=== PATIENT | male | born 1945 | race African-American/Black ===

== ENCOUNTER 2017-04-23 17:49 | Inpatient (IN) | payer MEDICARE ==
[2017-04-23] VITALS (8 sets, daily range): BP systolic 92–116; BP diastolic 48–90
[~2017-04-23] VITALS: Ht 182.9 cm; Wt 90.8 kg
[2017-04-23] MEDS ORDERED: Midazolam 2mg/2ml Inj IVP ONE ×2 (18:00→20:30)
[2017-04-23] MEDS ORDERED: Piperacillin/Tazobactam 4.5 GM in NS 110 ML IV ONE (18:00)
[2017-04-23] MEDS ORDERED: Etomidate 40mg/20ml Inj IV ONE (18:00)
[2017-04-23] MEDS ORDERED: Vancomycin 1.5gm/D5W 300ml 325 ML IVPB ONE (18:00)
[2017-04-23] MEDS ORDERED: Solu-MEDROL 125mg Inj IVP ONE (18:00)
[2017-04-23 18:18] LABS: MEAN CORPUSCULAR HEMOGLOBIN 31.8 PG (27.0-31.0); MEAN CORPUSCULAR HGB CONC 31.2 G/DL (32.0-36.0); MEAN CORPUSCULAR VOLUME 102 FL (80-99); MEAN PLATELET VOLUME 6.4 FL (6.5-10.1); PLATELET COUNT 389 K/UL (150-450); RED BLOOD COUNT 2.47 M/UL (4.70-6.10); RED CELL DISTRIBUTION WIDTH 15.5 % (11.6-14.8); WHITE BLOOD COUNT 10.7 K/UL (4.8-10.8)
--- NOTE | 2017-04-23 18:18 | Emergency Room Report ---
History of Present Illness General Chief Complaint: Dyspnea/Respdistress Source: Family Member, EMS Present Illness HPI Patient presents from SNF with resp distress, hypoxia and decreased mentation. Post stroke. H/O pneumonia in past. Unable to answer questions. Accucheck high in field. No other history available initially. Son later states cough for several days. Allergies: Coded Allergies: No Known Allergies (Unverified , 04/23/17) Patient History Past Medical History: see triage record Past Surgical History: other - PEG Social History Narrative SNF, full code Reviewed Nursing Documentation: PMH: Agreed, PSxH: Agreed Review of Systems All Other Systems: limited Physical Exam Vital Signs Date Time Temp Pulse Resp B/P Pulse Ox O2 Delivery O2 Flow Rate FiO2 04/23/17 17:47 98.2 83 20 113/66 99 Non-Rebreather 15.0 Sp02 EP Interpretation: reviewed, normal General Appearance: moderate distress, obese, Chronically Ill Head: normocephalic Eyes: bilateral eye PERRL, bilateral eye normal inspection ENT: dry mucus membranes Neck: supple Respiratory: crackles, rales, rhonchi, other - hypopneic Cardiovascular #1: regular rate, rhythm, edema Cardiovascular #2: 2+ radial (R) Gastrointestinal: normal inspection, normal bowel sounds, non tender, no mass, non-distended Musculoskeletal: back normal, swelling Neurologic: DTRs symmetric, motor weakness - R hemiparesis, other - ebulic, not respond to questions or commands Skin: cyanosis, other - fevrile, decubiti Procedures Critical Care Time Critical Care Time Total Critical Care Time: 45 min of bedside evaluation and treatment excludes procedures Procedures: intubation, EKG Reason for Critical Care: Hypotension, sepsis, metabolic acidosis, prevention of end organ injury, respiratory failure Course: the patient presented with AMS, hypoxia. I assessed ineffective TV. He was immediately intubated. He later dropped his blood pressure but this responded to aggressive fluid resuscitation. In addition, antibiotics were initiated. Repeated evaluations were made as well as discussion with PMD/ critical care. He was more alert and sedation with Versed was ordered. This had to be repeated ABG reflected vent support and improvement of respiratory acidosis. Patient admitted to ICU. Consultations: PMD/critical care , post care - Carlos RICHARDSON Alternative history: EMS, family Result: Patient was improved but critical Performed by: Dr. Avn Intubation Intubation : Consent: Emergent Intubation Method: orotracheal Tube Size (cm): 8.0 Medications: Etomidate Breath Sounds after Intubation: equal - 24 cm Intubation Complications: no complications Post Intubation Xray: Yes Attempts: One Patient Tolerated: Well Complications: None Medical Decision Making Diagnostic Impression: Primary Impression: Respiratory failure Qualified Codes: J96.01 - Acute respiratory failure with hypoxia; J96.02 - Acute respiratory failure with hypercapnia Additional Impressions: Pneumonia Qualified Codes: J18.9 - Pneumonia, unspecified organism Sepsis Qualified Codes: A41.9 - Sepsis, unspecified organism Status post stroke ER Course Patient presents with respiratory distress, ALOC and hypoxia. Initial evaluation with poor tidal volumes. Suspect pneumonia/sepsis but need to exclude cardiac cause. Some neurologic compromise as prior stroke. After evaluation of POLST, set up for immediate intubation. Bloods, EKG, CXR ordered. Initiation of bolus to treat sepsis. Triple antibiotics ordered as from SNF. Sedation ordered. CXR with R infiltrates. Thick green secretions in ET tube. During bolus BP dropped to 80. BP improved with bolus. Repeat sedation needed. ABG was drawn on 100 % (not 35%). Sats 97% on 35%. Increased versed as patient coughing and light. Repeat sedation needed. Improved sedation. Discussed with son. Type and Rh ordered due to anemia. Repeat accucheck ordered. Elevated lactic acid and renal function. Admit ICU Dr. Mason. After admission, Carlos called. Discussed with RITO RICHARDSON ([id number]). Laboratory Tests Test 04/23/17 17:54 04/23/17 18:48 04/23/17 20:20 White Blood Count 10.7 K/UL (4.8-10.8) Red Blood Count 2.47 M/UL (4.70-6.10) L Hemoglobin 7.8 G/DL (14.2-18.0) L Hematocrit 25.1 % (42.0-52.0) L Mean Corpuscular Volume 102 FL (80-99) H Mean Corpuscular Hemoglobin 31.8 PG (27.0-31.0) H Mean Corpuscular Hemoglobin Concent 31.2 G/DL (32.0-36.0) L Red Cell Distribution Width 15.5 % (11.6-14.8) H Platelet Count 389 K/UL (150-450) Mean Platelet Volume 6.4 FL (6.5-10.1) L Neutrophils (%) (Auto) % (45.0-75.0) Lymphocytes (%) (Auto) % (20.0-45.0) Monocytes (%) (Auto) % (1.0-10.0) Eosinophils (%) (Auto) % (0.0-3.0) Basophils (%) (Auto) % (0.0-2.0) Differential Total Cells Counted 100 Neutrophils % (Manual) 63 % (45-75) Lymphocytes % (Manual) 20 % (20-45) Monocytes % (Manual) 10 % (1-10) Eosinophils % (Manual) 2 % (0-3) Basophils % (Manual) 0 % (0-2) Band Neutrophils 5 % (0-8) Platelet Estimate Adequate Platelet Morphology Normal Polychromasia 1+ Hypochromasia 3+ Anisocytosis 1+ Macrocytosis 1+ Prothrombin Time 10.8 SEC (9.30-11.50) Prothrombin Time INR 1.0 (0.9-1.1) PTT 29 SEC (23-33) Sodium Level 139 mEQ/L (135-145) Potassium Level 5.4 mEQ/L (3.4-4.9) H Chloride Level 100 mEQ/L (98-107) Carbon Dioxide Level 27 mEQ/L (20-30) Anion Gap 12 (5-15) Blood Urea Nitrogen 42 mg/dL (7-23) H Creatinine 1.3 mg/dL (0.7-1.2) H Estimate Glomerular Filtration Rate mL/min (>60) Glucose Level 301 mg/dL (74-106) H Lactic Acid Level 2.60 mmol/L (0.66-2.22) H 1.80 mmol/L (0.66-2.22) Calcium Level 9.1 mg/dL (8.6-10.2) Total Bilirubin 0.2 mg/dL (0.0-1.2) Aspartate Amino Transferase (AST) 30 U/L (5-40) Alanine Aminotransferase (ALT) 36 U/L (3-41) Alkaline Phosphatase 126 U/L (40-129) Troponin I < 0.30 ng/mL (<=0.30) Pro-B-Type Natriuretic Peptide 1604 pg/mL (0-125) H Total Protein 7.0 g/dL (6.6-8.7) Albumin 2.8 g/dL (3.5-5.2) L Globulin 4.2 g/dL Albumin/Globulin Ratio 0.6 (1.0-2.7) L Arterial Blood pH 7.400 (7.350-7.450) Arterial Blood Partial Pressure CO2 42.9 mmHg (35.0-45.0) Arterial Blood Partial Pressure O2 332.2 mmHg (75.0-100.0) H Arterial Blood HCO3 26.3 mmol/L (22.0-26.0) H Arterial Blood Oxygen Saturation 99.3 % (92.0-98.0) H Arterial Blood Base Excess 1.4 Angelo Test Positive EKG Diagnostic Results Rate: normal Rhythm: NSR ST Segments: no acute changes Rhythm Strip Diag. Results EP Interpretation: yes Rhythm: NSR, no PVC's, no ectopy Chest X-Ray Diagnostic Results Chest X-Ray Ordered: Yes # of Views/Limited/Complete: 1 View EP Interpretation: Yes Interpretation: no effusion, no pneumothorax, other - ET OK, R infiltrates Indication: Shortness of Breath Impression: Other Interpreting ER Provider: van Last Vital Signs Date Time Temp Pulse Resp B/P Pulse Ox O2 Delivery O2 Flow Rate FiO2 04/24/17 04:00 35 04/24/17 03:25 68 21 04/24/17 02:30 100/44 100 Mechanical Ventilator 04/24/17 00:00 99.1 04/23/17 19:29 15.0 Status: improved Disposition: ADMITTED INPATIENT Condition: Critical Marco Araujo M.D. Apr 23, 2017 18:18
[2017-04-23 18:39] LABS: PROTHROMBIN TIME 10.8 SEC (9.30-11.50)
[2017-04-23 18:46] LABS: ALANINE AMINOTRANSFERASE 36 U/L (3-41); ALBUMIN/GLOBULIN RATIO 0.6 (1.0-2.7); ANION GAP 12 (5-15); ASPARTATE AMINO TRANSFERASE 30 U/L (5-40); CALCIUM 9.1 mg/dL (8.6-10.2); CARBON DIOXIDE 27 mEQ/L (20-30); CHLORIDE 100 mEQ/L (98-107); CREATININE 1.3 mg/dL (0.7-1.2); HEMOLYSIS 1; POTASSIUM 5.4 mEQ/L (3.4-4.9); SODIUM 139 mEQ/L (135-145); TROPONIN I < 0.30 ng/mL (<=0.30)
[2017-04-23 18:47] LABS: BAND NEUTROPHILS % (MANUAL) 5 % (0-8); BASOPHILS % (MANUAL) 0 % (0-2); EOSINOPHILS % (MANUAL) 2 % (0-3); LYMPHOCYTES % (MANUAL) 20 % (20-45); NEUTROPHILS % (MANUAL) 63 % (45-75); PLATELET ESTIMATE ADEQUATE; TOTAL CELLS COUNTED 100
[2017-04-23 18:48] LABS: ANISOCYTOSIS 1+; HYPOCHROMASIA 3+; MACROCYTES 1+; PLATELET MORPHOLOGY NORMAL; POLYCHROMASIA 1+
[2017-04-23 18:50] LABS: REFLEX LACTIC ACID YES OR NO YES
[2017-04-23] MEDS: Midazolam for drip 50 MG in D5W 90 ML IV SCH ×3 (18:51→22:06)
[2017-04-23] MEDS ORDERED: Zosyn 4.5gm inj ONE (18:54)
[2017-04-23] MEDS ORDERED: CATAPRES0.1 MG PEG (19:00)
[2017-04-23] MEDS ORDERED: NORVASC10 MG GT (19:00)
[2017-04-23] MEDS ORDERED: LOVENOX10 M4 SUBQ (19:00)
[2017-04-23] MEDS ORDERED: PEPCID20 MG ORAL (19:00)
[2017-04-23] MEDS ORDERED: ATORVASTATIN CA80 MG GT (19:00)
[2017-04-23] MEDS ORDERED: ECOTRIN325 MG ORAL (19:00)
[2017-04-23] MEDS ORDERED: HYDRALAZINE HCL50 MG ORAL (19:00)
[2017-04-23] MEDS ORDERED: FOLIC ACID1 MG PEG (19:00)
[2017-04-23] MEDS ORDERED: ISOSORBIDE DINIT5 MG PEG (19:02)
[2017-04-23] MEDS ORDERED: LOSARTAN POTASS50 MG PEG (19:02)
[2017-04-23] MEDS ORDERED: SENOKOT8.6 MG PO (19:02)
[2017-04-23] MEDS ORDERED: Miralax 17gm pkt ORAL PRN (19:15)
[2017-04-23] MEDS ORDERED: DuoNeb 0.5-3(2.5)mg/3ml neb HHN PRN (19:15)
[2017-04-23] MEDS ORDERED: Amikacin Rx to dose MISC PRN (20:00)
[2017-04-23 20:12] LABS: ABG ALLEN TEST POSITIVE; ABG BASE EXCESS 1.4; ABG PCO2 42.9 mmHg (35.0-45.0)
[2017-04-23] MEDS: Heparin 5000 units/ml inj SUBQ SCH (21:38)
[2017-04-23] MEDS: Ertapenem 1 GM in NS 55 ML IV SCH (21:39)
[2017-04-23] MEDS: Amikacin 1,200 MG in NS 110 ML IV SCH (22:53)
--- NOTE | 2017-04-23 23:12 | History and Physical ---
History of Present Illness General Date patient seen: Apr 23, 2017 Reason for Hospitalization: Dyspnea/Respdistress Present Illness HPI 71 year old male with hx of DM, prostate CA, CVA, half-way resident presented with resp distress, hypoxia and decreased mentation. Post stroke. H/ O pneumonia in past. Unable to answer questions. Accucheck high in field. There is an unsigned POLST in the chart indicating "Attempt Resuscitation", therefore pt was intubated and transferred to ICU. Allergies: Coded Allergies: No Known Allergies (Unverified , 04/23/17) Medication History Scheduled Amlodipine Besylate (Norvasc), 10 MG GT DAILY, (Reported) Aspirin* (Ecotrin*), 81 MG ORAL DAILY, (Reported) Atorvastatin Calcium* (Lipitor*), 80 MG GT BEDTIME, (Reported) Clonidine Hcl* (Catapres*), 0.1 MG PEG DAILY, (Reported) Enoxaparin* (Lovenox*), 40 MG SUBQ DAILY, (Reported) Famotidine (Pepcid), 20 MG ORAL BEDTIME, (Reported) Folic Acid* (Folic Acid*), 400 MCG PEG DAILY, (Reported) Hydralazine Hcl* (Hydralazine Hcl*), 50 MG ORAL EVERY 8 HOURS, (Reported) Isosorbide Dinitrate (Isosorbide Dinitrate*), 10 MG PEG TID, (Reported) Losartan Potassium* (Losartan Potassium*), 50 MG PEG BID, (Reported) Sennosides (Senokot), 8.6 MG PO DAILY, (Reported) Patient History Healthcare decision maker colette suresh, daughter Resuscitation status Full Code Advanced Directive on File No Past Medical/Surgical History Past Medical/Surgical History: (1) Diabetes mellitus (2) Prostate cancer (3) Status post stroke Review of Systems All Other Systems: negative except mentioned in HPI Physical Exam General Appearance: cachetic Lines, tubes and drains: peripheral HEENT: normocephalic, atraumatic Neck: non-tender, supple Respiratory/Chest: chest wall non-tender, lungs clear Cardiovascular/Chest: normal peripheral pulses, normal rate, regular rhythm Abdomen: normal bowel sounds Genitourinary/Rectal: normal genital exam Extremities: normal range of motion Last 24 Hour Vital Signs Date Time Temp Pulse Resp B/P Pulse Ox O2 Delivery O2 Flow Rate FiO2 04/23/17 22:53 99.9 04/23/17 21:35 16 04/23/17 21:25 80 16 35 04/23/17 21:09 80 04/23/17 21:09 92/51 04/23/17 21:03 100.3 80 16 116/90 96 Mechanical Ventilator 35 04/23/17 21:00 35 04/23/17 19:29 98.9 67 22 107/48 100 Non-Rebreather 15.0 35 04/23/17 19:27 80 18 Non-Rebreather 15.0 35 04/23/17 19:26 81 20 Mechanical Ventilator 35 04/23/17 18:51 18 04/23/17 18:35 80 16 35 04/23/17 17:47 98.2 83 20 113/66 99 Non-Rebreather 15.0 Laboratory Tests Test 04/23/17 17:54 04/23/17 18:48 04/23/17 20:20 White Blood Count 10.7 K/UL (4.8-10.8) Red Blood Count 2.47 M/UL (4.70-6.10) L Hemoglobin 7.8 G/DL (14.2-18.0) L Hematocrit 25.1 % (42.0-52.0) L Mean Corpuscular Volume 102 FL (80-99) H Mean Corpuscular Hemoglobin 31.8 PG (27.0-31.0) H Mean Corpuscular Hemoglobin Concent 31.2 G/DL (32.0-36.0) L Red Cell Distribution Width 15.5 % (11.6-14.8) H Platelet Count 389 K/UL (150-450) Mean Platelet Volume 6.4 FL (6.5-10.1) L Neutrophils (%) (Auto) % (45.0-75.0) Lymphocytes (%) (Auto) % (20.0-45.0) Monocytes (%) (Auto) % (1.0-10.0) Eosinophils (%) (Auto) % (0.0-3.0) Basophils (%) (Auto) % (0.0-2.0) Differential Total Cells Counted 100 Neutrophils % (Manual) 63 % (45-75) Lymphocytes % (Manual) 20 % (20-45) Monocytes % (Manual) 10 % (1-10) Eosinophils % (Manual) 2 % (0-3) Basophils % (Manual) 0 % (0-2) Band Neutrophils 5 % (0-8) Platelet Estimate Adequate Platelet Morphology Normal Polychromasia 1+ Hypochromasia 3+ Anisocytosis 1+ Macrocytosis 1+ Prothrombin Time 10.8 SEC (9.30-11.50) Prothromb Time International Ratio 1.0 (0.9-1.1) Activated Partial Thromboplast Time 29 SEC (23-33) Sodium Level 139 mEQ/L (135-145) Potassium Level 5.4 mEQ/L (3.4-4.9) H Chloride Level 100 mEQ/L (98-107) Carbon Dioxide Level 27 mEQ/L (20-30) Anion Gap 12 (5-15) Blood Urea Nitrogen 42 mg/dL (7-23) H Creatinine 1.3 mg/dL (0.7-1.2) H Estimat Glomerular Filtration Rate mL/min (>60) Glucose Level 301 mg/dL (74-106) H Lactic Acid Level 2.60 mmol/L (0.66-2.22) H 1.80 mmol/L (0.66-2.22) Calcium Level 9.1 mg/dL (8.6-10.2) Total Bilirubin 0.2 mg/dL (0.0-1.2) Aspartate Amino Transf (AST/SGOT) 30 U/L (5-40) Alanine Aminotransferase (ALT/SGPT) 36 U/L (3-41) Alkaline Phosphatase 126 U/L (40-129) Troponin I < 0.30 ng/mL (<=0.30) Pro-B-Type Natriuretic Peptide 1604 pg/mL (0-125) H Total Protein 7.0 g/dL (6.6-8.7) Albumin 2.8 g/dL (3.5-5.2) L Globulin 4.2 g/dL Albumin/Globulin Ratio 0.6 (1.0-2.7) L Arterial Blood pH 7.400 (7.350-7.450) Arterial Blood Partial Pressure CO2 42.9 mmHg (35.0-45.0) Arterial Blood Partial Pressure O2 332.2 mmHg (75.0-100.0) H Arterial Blood HCO3 26.3 mmol/L (22.0-26.0) H Arterial Blood Oxygen Saturation 99.3 % (92.0-98.0) H Arterial Blood Base Excess 1.4 Angelo Test Positive Height (Feet): 6 Height (Inches): 1.00 Weight (Pounds): 195 Medications Current Medications Medications (Trade) Dose Ordered Sig/Guzman Route PRN Reason Start Time Stop Time Status Last Admin Dose Admin Acetaminophen (Tylenol) 650 mg Q4H PRN ORAL fever 04/23/17 19:15 05/23/17 19:14 04/23/17 21:39 Albuterol/ Ipratropium 3 ml 3 ml Q4H PRN HHN Shortness of Breath 04/23/17 19:15 04/28/17 19:14 Amikacin Protocol (Amikacin pharmacy to dose) 1 ea DAILY PRN MISC PRN RX PROTOCOL 04/23/17 20:00 05/23/17 19:59 Amikacin Sulfate 1200 mg/Sodium Chloride 114.8 ml @ 114.8 mls/ hr Q24H IV 04/23/17 22:00 04/30/17 21:59 04/23/17 22:53 Ertapenem 1 gm/ Sodium Chloride 55 ml @ 110 mls/hr Q24H IV 04/23/17 20:30 04/24/17 20:29 04/23/17 21:39 Heparin Sodium (Porcine) (Heparin 5000 units/ml) 5,000 units EVERY 12 HOURS SUBQ 04/23/17 21:00 05/23/17 20:59 04/23/17 21:38 Lorazepam 2 mg 2 mg Q2H PRN IV For Anxiety 04/23/17 19:15 04/30/17 19:14 Midazolam HCl 50 mg/Dextrose 100 ml @ 0 mls/hr Q24H IV 04/23/17 18:00 05/23/17 17:59 04/23/17 21:35 Morphine Sulfate (Morphine Sulfate) 4 mg Q4H PRN IVP Severe Pain (Pain Scale 7-10) 04/23/17 19:15 04/30/17 19:14 Norepinephrine Bitartrate/ Dextrose (Levophed/D5W) 254 ml @ 0 mls/hr Q24H IV 04/23/17 20:00 05/23/17 19:59 Ondansetron HCl (Zofran) 4 mg Q6H PRN IVP Nausea & Vomiting 04/23/17 19:15 05/23/17 19:14 Pantoprazole (Protonix) 40 mg DAILY IV 04/24/17 09:00 05/24/17 08:59 Polyethylene Glycol (Miralax) 17 gm DAILYPRN PRN ORAL Constipation 04/23/17 19:15 05/23/17 19:14 Sodium Chloride (Sodium Chloride 1000ml bag) 1,000 ml @ 100 mls/hr Q10H IVLG 04/23/17 20:15 05/23/17 20:14 04/23/17 21:08 Vancomycin HCl (Vanco rx to dose) 1 ea DAILY PRN MISC PRN RX PROTOCOL 04/23/17 20:00 05/23/17 19:59 Vancomycin HCl/ Dextrose (Vancomycin/D5W) 275 ml @ 183.3 mls/ hr Q12H IVPB 04/23/17 23:00 04/28/17 22:59 Assessment/Plan Problem List: (1) Acute respiratory failure ICD Codes: J96.00 - Acute respiratory failure, unspecified whether with hypoxia or hypercapnia SNOMED: 24420555 (2) Sepsis ICD Codes: A41.9 - Sepsis, unspecified organism SNOMED: 14992920 Qualifiers: Qualified Codes: A41.9 - Sepsis, unspecified organism (3) Pneumonia ICD Codes: J18.9 - Pneumonia, unspecified organism SNOMED: 875409233 Qualifiers: Qualified Codes: J18.9 - Pneumonia, unspecified organism (4) Diabetes mellitus ICD Codes: E11.9 - Type 2 diabetes mellitus without complications SNOMED: 01020306 (5) Prostate cancer ICD Codes: C61 - Malignant neoplasm of prostate SNOMED: 400740987 Respiratory: adjust tidal volume, monitor respiratory rate, adjust FIO2, CXR Cardiac: continue to monitor HR/BP Renal: F/U I&O, keep IV fluid, check electrolytes Infectious Disease: check cultures, continue antibiotics Gastrointestinal: continue feedings/current rate Endocrine: monitor blood sugar, check TSH Hematologic: monitor H/H, transfuse if hgb<8.5 Neurologic: PRN Ativan, PRN Morphine Affect: PRN ativan Prophylaxis: Protonix, Heparin Disposition: keep in ICU Notes Reviewed: whiskey filterer, cardio Discussed with: nurses, consultants, case hardener MARGARITA ROBLES Apr 23, 2017 23:12
[2017-04-23] MEDS: Vancomycin 1.25 GM in D5W 275 ML IVPB SCH (23:22)
[2017-04-24] VITALS (31 sets, daily range): BP systolic 100–146; BP diastolic 44–75
--- NOTE | 2017-04-24 02:20 | Wound Care Consultation ---
Wound Assessment Wound Assessment #1: Wound Number: #1 Wound Present on Admission: Yes New Wound: No Status Change of Wound: No Wound Location Body Site Modif: mid Wound Location Body Site: sacral Wound Type: scar - scattered Joyce Test: Does not Joyce Wound Thickness: Full Thickness Wound Length: 9.0 Wound Width: 4.0 Wound Depth: utd Wound Drainage Amount: None Wound Drainage Odor: None/Absent Tissue Surrounding Wound: Intact Wound General Appearance: Asymptomatic Wound Assessment #2: Wound Number: #2 Wound Present on Admission: Yes New Wound: No Status Change of Wound: No Wound Location Body Site Modif: right Wound Location Body Site: heel Wound Type: pressure ulcer Joyce Test: Does not Joyce Pressure Ulcer Stage: deep tissue injury Wound Thickness: Full Thickness Wound Length: 3.0 Wound Width: 2.0 Wound Depth: utd Percent of Wound Purple/Maroon: 100 Wound Drainage Amount: None Wound Drainage Odor: None/Absent Tissue Surrounding Wound: Intact Wound General Appearance: Reddened - maroon. Wound Assessment #3: Wound Number: #3 Wound Present on Admission: Yes New Wound: No Status Change of Wound: No Wound Location Body Site Modif: left Wound Location Body Site: buttocks Wound Type: pressure ulcer Joyce Test: Does not Joyce Pressure Ulcer Stage: III - scattered noted fullthickness scar tissue to area. Wound Thickness: Full Thickness Wound Length: 5.0 Wound Width: 3.0 Wound Depth: 0.2 Percent of Wound [place]/Red: 100 Wound Drainage Description: Serosanguineous Wound Drainage Amount: Scant Wound Drainage Odor: None/Absent Tissue Surrounding Wound: Macerated Wound General Appearance: Reddened Wound Assessment #4: Wound Number: #4 Wound Present on Admission: Yes New Wound: No Status Change of Wound: No Wound Location Body Site: other - scrotal area Wound Type: other - open fullthickness scattered wounds Joyce Test: Does not Joyce Wound Thickness: Full Thickness Percent of Wound [place]/Red: 100 Wound Drainage Description: Serosanguineous Wound Drainage Amount: Scant Wound Drainage Odor: None/Absent Tissue Surrounding Wound: Macerated Wound General Appearance: Reddened Wound Comment #1 right heel deep tissue injury. #2 sacral full thickness scar tissue scattered. #3 parietal scalp noted hyperpigmentaion skin intact. #4 left lower buttocks pressure ulcer stage III scattered full thickness scar tissue to area #5 scrotal area full thickness scattered open wounds. Recommendation. - local wound care as ordered. -low air loss SPR mattress. - Turn and reposition. - keep clean and dry. -Optimize nutritIon. -Avoid shear and friction. -Assess and notify MD for any further change of condition to skin noted. JORDIN PENA Apr 24, 2017 02:20
[2017-04-24 06:33] LABS: MEAN CORPUSCULAR HEMOGLOBIN 31.5 PG (27.0-31.0); MEAN CORPUSCULAR HGB CONC 30.5 G/DL (32.0-36.0); MEAN CORPUSCULAR VOLUME 103 FL (80-99); MEAN PLATELET VOLUME 6.2 FL (6.5-10.1); PLATELET COUNT 353 K/UL (150-450); RED BLOOD COUNT 2.26 M/UL (4.70-6.10); RED CELL DISTRIBUTION WIDTH 15.7 % (11.6-14.8); WHITE BLOOD COUNT 14.1 K/UL (4.8-10.8)
[2017-04-24 06:56] LABS: INR 1.1 (0.9-1.1); PROTHROMBIN TIME 11.1 SEC (9.30-11.50)
[2017-04-24 07:15] LABS: ALANINE AMINOTRANSFERASE 30 U/L (3-41); ALBUMIN/GLOBULIN RATIO 0.5 (1.0-2.7); ANION GAP 11 (5-15); ASPARTATE AMINO TRANSFERASE 26 U/L (5-40); BILIRUBIN,DIRECT 0.1 mg/dL (0.1-0.3); CALCIUM 8.9 mg/dL (8.6-10.2); CARBON DIOXIDE 25 mEQ/L (20-30); CHLORIDE 102 mEQ/L (98-107); CREATININE 1.3 mg/dL (0.7-1.2); LACTATE DEHYDROGENASE 239 U/L (135-230); POTASSIUM 5.5 mEQ/L (3.4-4.9); SODIUM 138 mEQ/L (135-145); TOTAL PROTEIN 6.9 g/dL (6.6-8.7)
[2017-04-24 07:52] LABS: HEMOLYSIS 2; IRON 16 ug/dL (59-158); TOTAL IRON BINDING CAPACITY 139 ug/dL (250-400)
--- NOTE | 2017-04-24 08:15 | Diagnostic Imaging Report ---
Indications: Shortness of breath Technique: Portable AP chest Findings: Comparison: 04/23/17 Pulmonary inflation has improved. Bilateral parahilar interstitial infiltrates have decreased. Focal opacities persist in the right parahilar and infrahilar regions. Left lung currently clear. Heart size, pulmonary vasculature remain within normal limits. No pleural abnormalities detected IMPRESSION: Decrease in parahilar interstitial opacities with improved pulmonary inflation Persistent focal opacities in right perihilar/infrahilar regions, nonspecific, may represent atelectasis or focal pneumonia
[2017-04-24 08:23] LABS: APPEARANCE,URINE SLIGHTLY CLOUDY; KETONES,URINE NEGATIVE (NEGATIVE); LEUKOCYTE ESTERASE ,URINE NEGATIVE (NEGATIVE); NITRITE,URINE NEGATIVE (NEGATIVE); PH,URINE 5 (4.5-8.0); PROTEIN,URINE 3+ (NEGATIVE); UROBILINOGEN,URINE NORMAL MG/DL (0.0-1.0)
[2017-04-24] MEDS: Heparin 5000 units/ml inj SUBQ SCH ×2 (08:27→21:32)
[2017-04-24 08:37] LABS: BACTERIA,URINE FEW /HPF; RBC,URINE TNTC /HPF (0 - 0); SQUAMOUS EPITHELIAL CELL,UR OCCASIONAL /LPF (NONE/OCC)
[2017-04-24] MEDS: Pantoprazole Inj IV SCH (08:44)
[2017-04-24 09:39] LABS: ABG BASE EXCESS 2.6; ABG PCO2 41.3 mmHg (35.0-45.0)
[2017-04-24 09:40] LABS: ABG ALLEN TEST POSITIVE
[2017-04-24 09:42] LABS: ERYTHROCYTE SEDIMENTATION RATE 135 MM/HR (0-20); PATH BLOOD SMEAR/OMC SENT TO PATHOLOGIST
[2017-04-24] MEDS: Midazolam for drip 50 MG in D5W 90 ML IV SCH (10:17)
--- NOTE | 2017-04-24 10:24 | Consultation ---
Consult Note Consult Note Asked to eval for renal failure and high K Chief Complaint: Dyspnea/Respdistress Patient presents from SNF with resp distress, hypoxia and decreased mentation. Post stroke. H/O pneumonia in past. Unable to answer questions. Accucheck high in field. No other history available initially. Son later states cough for several days. Past Surgical History: other - PEG SNF, full code All Other Systems: limited ER Physical Exam - General Physical Exam Vital Signs Date Time Temp Pulse Resp B/P Pulse Ox O2 Delivery O2 Flow Rate FiO2 04/23/17 17:47 98.2 83 20 113/66 99 Non-Rebreather 15.0 Sp02 EP Interpretation: reviewed, normal General Appearance: moderate distress, obese, Chronically Ill Head: normocephalic Eyes: bilateral eye PERRL, bilateral eye normal inspection ENT: dry mucus membranes Neck: supple Respiratory: crackles, rales, rhonchi, other - hypopneic Cardiovascular #1: regular rate, rhythm, edema Cardiovascular #2: 2+ radial (R) Gastrointestinal: normal inspection, normal bowel sounds, non tender, no mass, non-distended Musculoskeletal: back normal, swelling Neurologic: DTRs symmetric, motor weakness - R hemiparesis, other - ebulic, not respond to questions or commands Skin: cyanosis, other - fevrile, decubiti Intubation : Consent: Emergent Intubation Method: orotracheal Tube Size (cm): 8.0 Medications: Etomidate Breath Sounds after Intubation: equal - 24 cm Intubation Complications: no complications Post Intubation Xray: Yes Attempts: One Patient Tolerated: Well Complications: None Assessment/Plan status; Renal failure- High K Sever Anemia Primary Impression: Respiratory failure Additional Impressions: Pneumonia Sepsis Status post stroke Plan; Hydrate- Antibiotics Avoid nephrotoxics Transfuse? monitor renal parameters SANDOVAL JULES Apr 24, 2017 10:24
[2017-04-24] MEDS: Vancomycin 1.25 GM in D5W 275 ML IVPB SCH ×2 (10:45→22:56)
--- NOTE | 2017-04-24 11:18 | Pulmonolgy Critical Care Note ---
Critical Care - Asmt/Plan Problems: (1) Acute respiratory failure (2) Acute encephalopathy (3) Anemia (4) Pneumonia (5) ATN (acute tubular necrosis) (6) Sepsis (7) Prostate cancer (8) Diabetes mellitus Respiratory: monitor respiratory rate, adjust FIO2, CXR Cardiac: continue to monitor HR/BP Renal: F/U I&O, keep IV fluid, check electrolytes Infectious Disease: check cultures, continue antibiotics Gastrointestinal: hold feedings Endocrine: check HgA1C, continue sliding scale insulin Hematologic: monitor H/H, transfuse if hgb<8.5 Neurologic: PRN Morphine, keep patient comfortable Affect: PRN ativan Prophylaxis: Protonix, Heparin Disposition: keep in ICU Time Spent (Minutes): 40 Notes Reviewed: cardio, renal Discussed with: nurses, consultants, protective services case workergaming manager - Objective Last 24 Hour Vital Signs Date Time Temp Pulse Resp B/P Pulse Ox O2 Delivery O2 Flow Rate FiO2 04/24/17 10:17 19 04/24/17 10:00 21 04/24/17 10:00 98.7 64 22 112/55 100 Mechanical Ventilator 35 04/24/17 09:45 35 04/24/17 09:00 63 23 122/75 100 Mechanical Ventilator 40 04/24/17 09:00 23 04/24/17 08:46 65 19 40 04/24/17 08:00 99.1 66 18 117/55 100 Mechanical Ventilator 40 04/24/17 08:00 68 04/24/17 08:00 40 04/24/17 08:00 18 04/24/17 07:20 68 21 40 04/24/17 07:00 69 22 112/52 100 Mechanical Ventilator 35 04/24/17 07:00 21 04/24/17 06:00 21 04/24/17 06:00 72 22 122/55 100 Mechanical Ventilator 35 04/24/17 05:30 68 22 127/54 100 Mechanical Ventilator 35 04/24/17 05:03 67 21 40 04/24/17 05:00 20 04/24/17 05:00 71 22 127/54 100 Mechanical Ventilator 35 04/24/17 04:53 97.6 68 18 115/50 100 Mechanical Ventilator 35 04/24/17 04:41 68 18 115/50 Mechanical Ventilator 35 04/24/17 04:30 69 20 105/49 100 Mechanical Ventilator 35 04/24/17 04:00 68 04/24/17 04:00 35 04/24/17 04:00 98.9 68 21 112/49 99 Mechanical Ventilator 35 04/24/17 03:30 68 21 112/49 100 Mechanical Ventilator 35 04/24/17 03:25 68 21 40 04/24/17 03:00 68 20 100/44 100 Mechanical Ventilator 35 04/24/17 02:30 69 16 100/44 100 Mechanical Ventilator 35 04/24/17 02:00 21 04/24/17 02:00 73 16 104/46 100 Mechanical Ventilator 35 04/24/17 01:30 67 16 127/57 100 Mechanical Ventilator 35 04/24/17 01:09 67 16 40 04/24/17 01:00 67 16 111/50 100 Mechanical Ventilator 35 04/24/17 00:30 67 16 104/46 100 Mechanical Ventilator 35 04/24/17 00:00 99.1 70 16 102/49 100 Mechanical Ventilator 35 04/24/17 00:00 72 04/24/17 00:00 20 04/23/17 23:30 70 16 111/56 100 Mechanical Ventilator 35 04/23/17 23:18 73 16 35 04/23/17 23:00 20 04/23/17 23:00 72 16 102/50 100 Mechanical Ventilator 35 04/23/17 22:53 99.9 04/23/17 22:30 73 16 102/49 100 Mechanical Ventilator 35 04/23/17 22:00 74 16 110/50 100 Mechanical Ventilator 35 04/23/17 22:00 21 04/23/17 21:35 16 04/23/17 21:30 75 16 92/51 96 Mechanical Ventilator 35 04/23/17 21:25 80 16 35 04/23/17 21:09 80 04/23/17 21:09 92/51 04/23/17 21:03 100.3 80 16 116/90 96 Mechanical Ventilator 35 04/23/17 21:00 35 04/23/17 20:00 98.0 71 18 110/56 100 Mechanical Ventilator 35 04/23/17 19:29 98.9 67 22 107/48 100 Non-Rebreather 15.0 35 04/23/17 19:27 80 18 Non-Rebreather 15.0 35 04/23/17 19:26 81 20 Mechanical Ventilator 35 04/23/17 18:51 18 6/23/17 18:35 80 16 35 04/23/17 17:47 98.2 83 20 113/66 99 Non-Rebreather 15.0 Status: awake Condition: critical HEENT: atraumatic, normocephalic Lungs: clear, chest wall tender Heart: HR/BP stable, HR/BP unstable Abdomen: soft, non-tender Extremities: no C/C/E, edema Critical Care - Subjective ROS Limited/Unobtainable: Yes ICU Day: 2 Intubation Day: 2 Condition: critical EKG Rhythm: Sinus Rhythm FI02: 35 Vent Support Breath Rate: 16 Vent Support Mode: AC Vent Tidal Volume: 500 Sputum Amount: Small PEEP: 5.0 PIP: 62 Fluids: NS 100 cc.hour Drips: versed drip I&O: Intake and Output 04/23/17 04/24/17 19:00 07:00 Intake Total 1317.6 ml Output Total 0 ml Balance 1317.6 ml IV Total 1257.6 ml Other 60 ml Output Urine Total 0 ml # Voids 481 CXR: ET in good position ET-Tube: 8.0 ET Position: 24 Labs: Laboratory Tests Test 04/23/17 17:54 04/23/17 18:48 04/23/17 20:20 04/24/17 03:30 White Blood Count 10.7 K/UL (4.8-10.8) Red Blood Count 2.47 M/UL (4.70-6.10) L Hemoglobin 7.8 G/DL (14.2-18.0) L Hematocrit 25.1 % (42.0-52.0) L Mean Corpuscular Volume 102 FL (80-99) H Mean Corpuscular Hemoglobin 31.8 PG (27.0-31.0) H Mean Corpuscular Hemoglobin Concent 31.2 G/DL (32.0-36.0) L Red Cell Distribution Width 15.5 % (11.6-14.8) H Platelet Count 389 K/UL (150-450) Mean Platelet Volume 6.4 FL (6.5-10.1) L Neutrophils (%) (Auto) % (45.0-75.0) Lymphocytes (%) (Auto) % (20.0-45.0) Monocytes (%) (Auto) % (1.0-10.0) Eosinophils (%) (Auto) % (0.0-3.0) Basophils (%) (Auto) % (0.0-2.0) Differential Total Cells Counted 100 Neutrophils % (Manual) 63 % (45-75) Lymphocytes % (Manual) 20 % (20-45) Monocytes % (Manual) 10 % (1-10) Eosinophils % (Manual) 2 % (0-3) Basophils % (Manual) 0 % (0-2) Band Neutrophils 5 % (0-8) Platelet Estimate Adequate Platelet Morphology Normal Polychromasia 1+ Hypochromasia 3+ Anisocytosis 1+ Macrocytosis 1+ Prothrombin Time 10.8 SEC (9.30-11.50) Prothromb Time International Ratio 1.0 (0.9-1.1) Activated Partial Thromboplast Time 29 SEC (23-33) Sodium Level 139 mEQ/L (135-145) Potassium Level 5.4 mEQ/L (3.4-4.9) H Chloride Level 100 mEQ/L (98-107) Carbon Dioxide Level 27 mEQ/L (20-30) Anion Gap 12 (5-15) Blood Urea Nitrogen 42 mg/dL (7-23) H Creatinine 1.3 mg/dL (0.7-1.2) H Estimat Glomerular Filtration Rate mL/min (>60) Glucose Level 301 mg/dL (74-106) H Lactic Acid Level 2.60 mmol/L (0.66-2.22) H 1.80 mmol/L (0.66-2.22) Calcium Level 9.1 mg/dL (8.6-10.2) Total Bilirubin 0.2 mg/dL (0.0-1.2) Aspartate Amino Transf (AST/SGOT) 30 U/L (5-40) Alanine Aminotransferase (ALT/SGPT) 36 U/L (3-41) Alkaline Phosphatase 126 U/L (40-129) Troponin I < 0.30 ng/mL (<=0.30) Pro-B-Type Natriuretic Peptide 1604 pg/mL (0-125) H Total Protein 7.0 g/dL (6.6-8.7) Albumin 2.8 g/dL (3.5-5.2) L Globulin 4.2 g/dL Albumin/Globulin Ratio 0.6 (1.0-2.7) L Arterial Blood pH 7.400 (7.350-7.450) Arterial Blood Partial Pressure CO2 42.9 mmHg (35.0-45.0) Arterial Blood Partial Pressure O2 332.2 mmHg (75.0-100.0) H Arterial Blood HCO3 26.3 mmol/L (22.0-26.0) H Arterial Blood Oxygen Saturation 99.3 % (92.0-98.0) H Arterial Blood Base Excess 1.4 Angelo Test Positive Urine Color Yellow Urine Appearance Slightly cloudy Urine pH 5 (4.5-8.0) Urine Specific [place] 1.020 (1.005-1.035) Urine Protein 3+ (NEGATIVE) H Urine Glucose (UA) 3+ (NEGATIVE) H Urine Ketones Negative (NEGATIVE) Urine Occult Blood 5+ (NEGATIVE) H Urine Nitrite Negative (NEGATIVE) Urine Bilirubin Negative (NEGATIVE) Urine Urobilinogen Normal MG/DL (0.0-1.0) Urine Leukocyte Esterase Negative (NEGATIVE) Urine RBC Tntc /HPF (0 - 0) H Urine WBC 2-4 /HPF (0 - 0) Urine Squamous Epithelial Cells Occasional /LPF Urine Bacteria Few /HPF (NONE) Urine Eosinophils None seen Urine Random Sodium 18 mmol/L Urine Potassium Timed 82 mmol/L Stool Occult Blood Pending Test 04/24/17 03:57 04/24/17 10:30 White Blood Count 14.1 K/UL (4.8-10.8) H Red Blood Count 2.26 M/UL (4.70-6.10) L Hemoglobin 7.1 G/DL (14.2-18.0) L Hematocrit 23.4 % (42.0-52.0) L Mean Corpuscular Volume 103 FL (80-99) H Mean Corpuscular Hemoglobin 31.5 PG (27.0-31.0) H Mean Corpuscular Hemoglobin Concent 30.5 G/DL (32.0-36.0) L Red Cell Distribution Width 15.7 % (11.6-14.8) H Platelet Count 353 K/UL (150-450) Mean Platelet Volume 6.2 FL (6.5-10.1) L Neutrophils (%) (Auto) % (45.0-75.0) Lymphocytes (%) (Auto) % (20.0-45.0) Monocytes (%) (Auto) % (1.0-10.0) Eosinophils (%) (Auto) % (0.0-3.0) Basophils (%) (Auto) % (0.0-2.0) Neutrophils % (Manual) Pending Lymphocytes % (Manual) Pending Platelet Estimate Pending Platelet Morphology Pending Erythrocyte Sedimentation Rate 135 MM/HR (0-20) H Reticulocyte Count Pending Prothrombin Time 11.1 SEC (9.30-11.50) Prothromb Time International Ratio 1.1 (0.9-1.1) Activated Partial Thromboplast Time 30 SEC (23-33) Arterial Blood pH 7.430 (7.350-7.450) Arterial Blood Partial Pressure CO2 41.3 mmHg (35.0-45.0) Arterial Blood Partial Pressure O2 92.4 mmHg (75.0-100.0) Arterial Blood HCO3 27.0 mmol/L (22.0-26.0) H Arterial Blood Oxygen Saturation 96.9 % (92.0-98.0) Arterial Blood Base Excess 2.6 Angelo Test Positive Sodium Level 138 mEQ/L (135-145) Potassium Level 5.5 mEQ/L (3.4-4.9) H Chloride Level 102 mEQ/L (98-107) Carbon Dioxide Level 25 mEQ/L (20-30) Anion Gap 11 (5-15) Blood Urea Nitrogen 42 mg/dL (7-23) H Creatinine 1.3 mg/dL (0.7-1.2) H Estimat Glomerular Filtration Rate mL/min (>60) Glucose Level 313 mg/dL (74-106) H Calcium Level 8.9 mg/dL (8.6-10.2) Iron Level 16 ug/dL (59-158) L Total Iron Binding Capacity 139 ug/dL (250-400) L Percent Iron Saturation 12 % (15-50) L Unsaturated Iron Binding 123 ug/dL (112-346) Total Bilirubin 0.3 mg/dL (0.0-1.2) Direct Bilirubin 0.1 mg/dL (0.1-0.3) Aspartate Amino Transf (AST/SGOT) 26 U/L (5-40) Alanine Aminotransferase (ALT/SGPT) 30 U/L (3-41) Alkaline Phosphatase 108 U/L (40-129) Lactate Dehydrogenase 239 U/L (135-230) H Total Protein 6.9 g/dL (6.6-8.7) Albumin 2.5 g/dL (3.5-5.2) L Globulin 4.4 g/dL Albumin/Globulin Ratio 0.5 (1.0-2.7) L Carcinoembryonic Antigen 2.1 ng/mL Vitamin B12 Level 812 pg/mL (211-946) Folate Pending Uric Acid Pending Phosphorus Level Pending Ferritin Pending Gamma Glutamyl Transpeptidase Pending Total Creatine Kinase Pending Random Amikacin Level Pending MARGARITA ROBLES Apr 24, 2017 11:18
[2017-04-24 11:25] LABS: PHOSPHORUS 3.8 mg/dL (2.5-4.8)
[2017-04-24 11:35] LABS: FERRITIN 549 ng/mL (10-230)
[2017-04-24 13:36] LABS: RETICULOCYTE COUNT 2.2 % (0.0-2.0)
[2017-04-24 13:42] LABS: BAND NEUTROPHILS % (MANUAL) 12 % (0-8); BASOPHILS % (MANUAL) 0 % (0-2); EOSINOPHILS % (MANUAL) 0 % (0-3); HYPOCHROMASIA 3+; LYMPHOCYTES % (MANUAL) 11 % (20-45); MACROCYTES 1+; NEUTROPHILS % (MANUAL) 74 % (45-75); PLATELET ESTIMATE ADEQUATE; PLATELET MORPHOLOGY NORMAL; TOTAL CELLS COUNTED 100
[2017-04-24] MEDS ORDERED: Tubing IV Secondary IV ONE (14:47)
[2017-04-24] MEDS: LORazepam Inj 2mg/ml 1ml IV PRN ×2 (17:24→23:00)
[2017-04-24] MEDS: NovoLOG Insulin Flexpen SUBQ SCH ×2 (17:27→23:47)
[2017-04-24] MEDS: Amikacin 1,200 MG in NS 110 ML IV SCH (21:33)
--- NOTE | 2017-04-24 22:27 | Consultation ---
Consult Note Consult Note ID # [id number] SHER PICKARD M.D. Apr 24, 2017 22:27
[2017-04-24] MEDS: Ertapenem 1 GM in NS 55 ML IV SCH (22:48)
[2017-04-24] MEDS: Morphine Sulfate 4mg/ml Inj IVP PRN (23:09)
[2017-04-25] VITALS (24 sets, daily range): BP systolic 111–174; BP diastolic 43–81
--- NOTE | 2017-04-25 02:00 | Consultation ---
DATE OF CONSULTATION: 04/24/2017 CONSULTING PHYSICIAN: Roman Monroe M.D REFERRING PHYSICIAN: Micheal Mason M.D. REASON FOR CONSULTATION: Evaluation of the patient for pneumonia, sepsis, and antibiotic management. HISTORY OF PRESENT ILLNESS: The patient is a 71-year-old male, who was transferred to this medical center from [facility] due to respiratory distress. The patient will have to be intubated and was transferred to the ICU. The patient also has fever. However, the patient is maintaining his blood pressure. Infectious Disease has been requested for further evaluation the patient and antibiotic management. PAST MEDICAL HISTORY: 1. History of dysphagia status post percutaneous endoscopic gastrostomy tube. 2. History of cerebrovascular accident. 3. History of hyperlipidemia. 4. Hypertension. 5. History of prostate cancer. 6. Diabetes. 7. Anemia. ALLERGIES: No known drug allergies. MEDICATIONS: Vancomycin, amikacin, and ertapenem. SOCIAL HISTORY: The patient lives in a halfway. FAMILY HISTORY: Unobtainable. REVIEW OF SYSTEMS: Unobtainable. PHYSICAL EXAMINATION: VITAL SIGNS: Temperature 100.3 degrees, pulse 86, respiratory rate 18, blood pressure 140/67. HEENT: Mild pale conjunctivae. No icterus. NECK: No lymphadenopathy. CHEST: Coarse breathing sounds. HEART: S1 and S2. ABDOMEN: Soft and obese. EXTREMITIES: No cyanosis. SKIN: The patient has multiple decubitus. No sign of infection. NEUROLOGIC: Nonverbal. LABORATORY DATA: White blood cells 14.1, hemoglobin 7.1, and platelets 253,000. UA, too numerous to count red blood cells. BUN 42 and creatinine 1.3. ALT, AST, and alkaline phosphatase are unremarkable. Lactic acid is 51. Chest x-ray, perihilar interstitial opacity, pulmonary right perihilar area. ASSESSMENT: The patient is a 71-year-old male with multiple medical problems, who has 1. Respiratory distress possible healthcare associated pneumonia. 2. Sepsis. 3. Urinary tract infection. 4. Rule out bacteremia. PLAN: 1. We will continue the patient on IV vancomycin, amikacin and ertapenem. 2. Monitor CBC. 3. Monitor BMP. 4. Monitor cultures (blood, urine and sputum). 5. Monitor chest x-ray. 6. Continue the patient on respiratory support. 7. Based on the patient's clinical course and labs, we will do further recommendation. Thank you, Dr. Mason, for allowing me to participate in the care of this patient. I will follow the patient with you during this hospitalization. Roman Monroe M.D. DR: BETTY JOB#: [id number] CC:
[2017-04-25] MEDS: LORazepam Inj 2mg/ml 1ml IV PRN ×4 (05:23→19:36)
[2017-04-25] MEDS: NovoLOG Insulin Flexpen SUBQ SCH ×4 (05:27→23:33)
[2017-04-25] MEDS: Morphine Sulfate 4mg/ml Inj IVP PRN ×3 (06:24→23:24)
--- NOTE | 2017-04-25 08:10 | Infectious Diseases Prog Note ---
Assessment/Plan Assessment/Plan ASSESSMENT: 71 y/o male with: // Probable HCAP - SCx pending - CXR 04/24: Decrease in parahilar interstitial opacities with improved pulmonary inflation Persistent focal opacities in right perihilar/infrahilar regions, nonspecific, may represent atelectasis or focal pneumonia // Severe sepsis - resolved lactic acidosis // Leukocytosis - repeat CBC pending // Low grade fever x1 // Acute VDRF - intubated 04/24 // Renal insufficiency ?acute vs chronic // DM2 // CVA // Dysphagia SP PEG // SNF resident // NKDA // DNR PLAN: - continue empiric IV vancomycin, invanz, amikacin d# 2 / - f/u cultures, adjust ABX accordingly - monitor CBC, temperatures - monitor BMP - monitor CXR - vent support, wean as tolerated Subjective Allergies: Coded Allergies: No Known Allergies (Unverified , 04/23/17) Subjective low grade fever x1. repeat CBC pending remains on vent Objective Vital Signs Last 24 Hour Vital Signs Date Time Temp Pulse Resp B/P Pulse Ox O2 Delivery O2 Flow Rate FiO2 04/25/17 07:00 60 16 125/61 100 Mechanical Ventilator 35 04/25/17 06:52 60 16 35 04/25/17 06:00 66 21 160/43 100 Mechanical Ventilator 35 04/25/17 05:00 67 21 149/72 100 Mechanical Ventilator 35 04/25/17 04:50 57 17 35 04/25/17 04:00 64 04/25/17 04:00 35 04/25/17 04:00 98.5 63 21 111/51 100 Mechanical Ventilator 35 04/25/17 03:11 66 23 35 04/25/17 03:00 56 19 128/79 100 Mechanical Ventilator 35 04/25/17 02:00 60 16 122/63 100 Mechanical Ventilator 35 04/25/17 01:04 64 20 35 04/25/17 01:00 61 20 120/64 100 Mechanical Ventilator 35 04/25/17 00:00 98.3 67 17 127/61 100 Mechanical Ventilator 35 04/25/17 00:00 35 04/25/17 00:00 72 04/24/17 23:00 78 21 146/64 100 Mechanical Ventilator 35 04/24/17 22:00 65 22 114/56 100 Mechanical Ventilator 35 04/24/17 21:00 61 20 142/67 100 Mechanical Ventilator 35 04/24/17 20:45 56 19 35 04/24/17 20:00 35 04/24/17 20:00 142/67 04/24/17 20:00 98.9 59 19 120/59 100 Mechanical Ventilator 35 04/24/17 20:00 59 04/24/17 19:00 67 21 138/65 100 Mechanical Ventilator 35 04/24/17 18:52 63 21 35 04/24/17 18:00 70 25 143/60 100 Mechanical Ventilator 35 04/24/17 17:00 90 18 143/70 100 Mechanical Ventilator 35 04/24/17 16:47 70 16 35 04/24/17 16:00 98.5 74 22 144/67 100 Mechanical Ventilator 35 04/24/17 16:00 35 04/24/17 16:00 73 04/24/17 15:00 60 19 137/62 100 Mechanical Ventilator 35 04/24/17 14:47 60 20 35 04/24/17 14:00 60 23 137/64 100 Mechanical Ventilator 35 04/24/17 13:00 61 19 120/56 100 Mechanical Ventilator 35 04/24/17 12:59 61 18 35 04/24/17 12:00 35 04/24/17 12:00 61 04/24/17 12:00 98.4 67 19 136/62 100 Mechanical Ventilator 35 04/24/17 11:00 63 16 116/57 100 Mechanical Ventilator 35 04/24/17 11:00 16 04/24/17 10:46 62 18 35 04/24/17 10:17 19 04/24/17 10:00 21 04/24/17 10:00 98.7 64 22 112/55 100 Mechanical Ventilator 35 04/24/17 09:45 35 04/24/17 09:00 63 23 122/75 100 Mechanical Ventilator 40 04/24/17 09:00 23 04/24/17 08:46 65 19 40 Height (Feet): 6 Height (Inches): 1.00 Weight (Pounds): 196 General Appearance: other - intubated Respiratory/Chest: decreased breath sounds Cardiovascular: normal rate, regular rhythm Abdomen: normal bowel sounds, soft, non tender, non distended Microbiology Date/Time Source Procedure Growth Status 04/23/17 17:56 Blood Blood Culture - Preliminary NO GROWTH AFTER 24 HOURS Resulted 04/23/17 17:40 Blood Blood Culture - Preliminary NO GROWTH AFTER 24 HOURS Resulted Laboratory Tests Test 04/24/17 10:30 Uric Acid 5.7 mg/dL (3.0-7.5) Phosphorus Level 3.8 mg/dL (2.5-4.8) Ferritin 549 ng/mL (10-230) H Gamma Glutamyl Transpeptidase 62 U/L (8-61) H Total Creatine Kinase 64 U/L (38-174) Random Amikacin Level 12.3 ug/mL Current Medications Medications (Trade) Dose Ordered Sig/Guzman Route PRN Reason Start Time Stop Time Status Last Admin Dose Admin Acetaminophen (Tylenol) 650 mg Q4H PRN ORAL fever 04/23/17 19:15 05/23/17 19:14 04/23/17 21:39 Albuterol/ Ipratropium 3 ml 3 ml Q4H PRN HHN Shortness of Breath 04/23/17 19:15 04/28/17 19:14 Amikacin Protocol (Amikacin pharmacy to dose) 1 ea DAILY PRN MISC PRN RX PROTOCOL 04/23/17 20:00 05/23/17 19:59 Amikacin Sulfate 1200 mg/Sodium Chloride 114.8 ml @ 114.8 mls/ hr Q24H IV 04/23/17 22:00 04/30/17 21:59 04/24/17 21:33 Dextrose (Dextrose 50%) STAT PRN IV Hypoglycemia 04/24/17 12:00 05/24/17 11:59 Ertapenem 1 gm/ Sodium Chloride 55 ml @ 110 mls/hr Q24H IV 04/23/17 20:30 04/28/17 20:29 04/24/17 22:48 Heparin Sodium (Porcine) (Heparin 5000 units/ml) 5,000 units EVERY 12 HOURS SUBQ 04/23/17 21:00 05/23/17 20:59 04/24/17 21:32 Insulin Aspart (NovoLOG) Q6HR SUBQ 04/24/17 18:00 05/24/17 17:59 04/25/17 05:27 Lorazepam 2 mg 2 mg Q2H PRN IV For Anxiety 04/23/17 19:15 04/30/17 19:14 04/25/17 05:23 Morphine Sulfate (Morphine Sulfate) 4 mg Q4H PRN IVP Severe Pain (Pain Scale 7-10) 04/23/17 19:15 04/30/17 19:14 04/25/17 06:24 Norepinephrine Bitartrate/ Dextrose (Levophed/D5W) 254 ml @ 0 mls/hr Q24H IV 04/23/17 20:00 05/23/17 19:59 Ondansetron HCl (Zofran) 4 mg Q6H PRN IVP Nausea & Vomiting 04/23/17 19:15 05/23/17 19:14 Pantoprazole (Protonix) 40 mg DAILY IV 04/24/17 09:00 05/24/17 08:59 04/24/17 08:44 Polyethylene Glycol (Miralax) 17 gm DAILYPRN PRN ORAL Constipation 04/23/17 19:15 05/23/17 19:14 Sodium Chloride (Sodium Chloride 1000ml bag) 1,000 ml @ 100 mls/hr Q10H IVLG 04/23/17 20:15 05/23/17 20:14 04/25/17 06:59 Vancomycin HCl (Vanco rx to dose) 1 ea DAILY PRN MISC PRN RX PROTOCOL 04/23/17 20:00 05/23/17 19:59 Vancomycin HCl/ Dextrose (Vancomycin/D5W) 275 ml @ 183.3 mls/ hr Q12H IVPB 04/23/17 23:00 04/28/17 22:59 04/24/17 22:56 GLORIA HOLGUIN 25, 2017 08:10
--- NOTE | 2017-04-25 09:13 | Diagnostic Imaging Report ---
Indications: Line/tube placement Technique: Portable AP chest at 2359 Findings: Comparison: 2114 Endotracheal tube has been advanced, tip now 5 cm above brice. Pulmonary inflation has decreased. Bronchovascular markings in the right lung base have increased. No other change. IMPRESSION: Advancement of endotracheal tube as described Increased lung markings with decreased pulmonary inflation right lung base, most likely compressive in nature. Early pneumonia not excludable. Followup to resolution recommended.
[2017-04-25] MEDS ORDERED: NS 275ml ONE (10:07)
[2017-04-25] MEDS ORDERED: Tubing IV Blood Pump IV ONE (10:38)
[2017-04-25] MEDS ORDERED: D5NS 1000ml IV ONE (10:38)
[2017-04-25 11:19] LABS: BASOPHILS % (AUTO) 0.4 % (0.0-2.0); EOSINOPHILS % (AUTO) 4.9 % (0.0-3.0); LYMPHOCYTES % (AUTO) 14.7 % (20.0-45.0); MEAN CORPUSCULAR HGB CONC 31.8 G/DL (32.0-36.0); MEAN CORPUSCULAR VOLUME 101 FL (80-99); MEAN PLATELET VOLUME 6.6 FL (6.5-10.1); MONOCYTES % (AUTO) 6.7 % (1.0-10.0); NEUTROPHILS % (AUTO) 73.3 % (45.0-75.0); PLATELET COUNT 414 K/UL (150-450); RED BLOOD COUNT 3.12 M/UL (4.70-6.10); RED CELL DISTRIBUTION WIDTH 16.9 % (11.6-14.8); WHITE BLOOD COUNT 15.2 K/UL (4.8-10.8)
--- NOTE | 2017-04-25 11:27 | General Progress Note ---
Assessment/Plan Status: unchanged Assessment/Plan Status; Renal failure- High K Sever Anemia Primary Impression: Respiratory failure Pneumonia Sepsis Status post stroke Plan; No labs today- Hydrate- Antibiotics Avoid nephrotoxics Transfused one unit 04/24 monitor renal parameters Subjective ROS Limited/Unobtainable: Yes Allergies: Coded Allergies: No Known Allergies (Unverified , 04/23/17) Objective Last 24 Hour Vital Signs Date Time Temp Pulse Resp B/P Pulse Ox O2 Delivery O2 Flow Rate FiO2 04/25/17 11:03 55 18 35 04/25/17 10:00 64 17 143/57 100 Mechanical Ventilator 35 04/25/17 09:00 63 18 153/71 100 Mechanical Ventilator 35 04/25/17 08:53 64 18 35 04/25/17 08:00 98.5 55 16 117/58 100 Mechanical Ventilator 35 04/25/17 08:00 55 04/25/17 08:00 35 04/25/17 07:00 60 16 125/61 100 Mechanical Ventilator 35 04/25/17 06:52 60 16 35 04/25/17 06:00 66 21 160/43 100 Mechanical Ventilator 35 04/25/17 05:00 67 21 149/72 100 Mechanical Ventilator 35 04/25/17 04:50 57 17 35 04/25/17 04:00 64 04/25/17 04:00 35 04/25/17 04:00 98.5 63 21 111/51 100 Mechanical Ventilator 35 04/25/17 03:11 66 23 35 04/25/17 03:00 56 19 128/79 100 Mechanical Ventilator 35 04/25/17 02:00 60 16 122/63 100 Mechanical Ventilator 35 04/25/17 01:04 64 20 35 04/25/17 01:00 61 20 120/64 100 Mechanical Ventilator 35 04/25/17 00:00 98.3 67 17 127/61 100 Mechanical Ventilator 35 04/25/17 00:00 35 04/25/17 00:00 72 04/24/17 23:00 78 21 146/64 100 Mechanical Ventilator 35 04/24/17 22:00 65 22 114/56 100 Mechanical Ventilator 35 04/24/17 21:00 61 20 142/67 100 Mechanical Ventilator 35 04/24/17 20:45 56 19 35 04/24/17 20:00 35 04/24/17 20:00 142/67 04/24/17 20:00 98.9 59 19 120/59 100 Mechanical Ventilator 35 04/24/17 20:00 59 04/24/17 19:00 67 21 138/65 100 Mechanical Ventilator 35 04/24/17 18:52 63 21 35 04/24/17 18:00 70 25 143/60 100 Mechanical Ventilator 35 04/24/17 17:00 90 18 143/70 100 Mechanical Ventilator 35 04/24/17 16:47 70 16 35 04/24/17 16:00 98.5 74 22 144/67 100 Mechanical Ventilator 35 04/24/17 16:00 35 04/24/17 16:00 73 04/24/17 15:00 60 19 137/62 100 Mechanical Ventilator 35 04/24/17 14:47 60 20 35 04/24/17 14:00 60 23 137/64 100 Mechanical Ventilator 35 04/24/17 13:00 61 19 120/56 100 Mechanical Ventilator 35 04/24/17 12:59 61 18 35 04/24/17 12:00 35 04/24/17 12:00 61 04/24/17 12:00 98.4 67 19 136/62 100 Mechanical Ventilator 35 Intake and Output 04/24/17 04/25/17 19:00 07:00 Intake Total 1767.0 ml 2216.1 ml Balance 1767.0 ml 2216.1 ml Intake Free Water 50 ml IV Total 1407.0 ml 1736.1 ml Tube Feeding 60 ml 480 ml Blood Product 250 ml # Voids 525 425 # Bowel Movements 3 7 Height (Feet): 6 Height (Inches): 1.00 Weight (Pounds): 196 General Appearance: no apparent distress EENT: other - on vent Neck: limited range of motion Cardiovascular: normal rate Respiratory/Chest: decreased breath sounds Abdomen: soft Objective no change SANDOVAL JULES Apr 25, 2017 11:27
[2017-04-25] MEDS: Pantoprazole Inj IV SCH (11:35)
[2017-04-25 11:41] LABS: MAGNESIUM 2.4 mg/dL (1.7-2.5); PHOSPHORUS 2.8 mg/dL (2.5-4.8)
[2017-04-25 11:43] LABS: ALANINE AMINOTRANSFERASE 32 U/L (3-41); ALBUMIN/GLOBULIN RATIO 0.5 (1.0-2.7); ANION GAP 12 (5-15); ASPARTATE AMINO TRANSFERASE 30 U/L (5-40); CALCIUM 9.4 mg/dL (8.6-10.2); CARBON DIOXIDE 26 mEQ/L (20-30); CHLORIDE 105 mEQ/L (98-107); CREATININE 0.7 mg/dL (0.7-1.2); HEMOLYSIS 4; POTASSIUM 4.3 mEQ/L (3.4-4.9); SODIUM 143 mEQ/L (135-145); TOTAL PROTEIN 6.8 g/dL (6.6-8.7)
[2017-04-25] MEDS: Vancomycin 1.25 GM in D5W 275 ML IVPB SCH ×2 (11:55→23:24)
--- NOTE | 2017-04-25 11:55 | Pulmonolgy Critical Care Note ---
Critical Care - Asmt/Plan Problems: (1) Acute respiratory failure (2) Acute encephalopathy (3) Anemia (4) Pneumonia (5) ATN (acute tubular necrosis) (6) Sepsis (7) Prostate cancer (8) Diabetes mellitus Respiratory: monitor respiratory rate, adjust FIO2 Cardiac: continue to monitor HR/BP Renal: F/U I&O, keep IV fluid, increase IV fluid Infectious Disease: check cultures Endocrine: monitor blood sugar, check HgA1C Hematologic: monitor H/H, transfuse if hgb<8.5 Neurologic: PRN Ativan, keep patient comfortable Disposition: keep in ICU Notes Reviewed: cardio, renal Discussed with: nurses, consultants, field case managerassistant brand manager - Objective Last 24 Hour Vital Signs Date Time Temp Pulse Resp B/P Pulse Ox O2 Delivery O2 Flow Rate FiO2 04/25/17 11:03 55 18 35 04/25/17 11:00 59 19 119/52 100 Mechanical Ventilator 35 04/25/17 10:00 64 17 143/57 100 Mechanical Ventilator 35 04/25/17 09:00 63 18 153/71 100 Mechanical Ventilator 35 04/25/17 08:53 64 18 35 04/25/17 08:00 98.5 55 16 117/58 100 Mechanical Ventilator 35 04/25/17 08:00 55 04/25/17 08:00 35 04/25/17 07:00 60 16 125/61 100 Mechanical Ventilator 35 04/25/17 06:52 60 16 35 04/25/17 06:00 66 21 160/43 100 Mechanical Ventilator 35 04/25/17 05:00 67 21 149/72 100 Mechanical Ventilator 35 04/25/17 04:50 57 17 35 04/25/17 04:00 64 04/25/17 04:00 35 04/25/17 04:00 98.5 63 21 111/51 100 Mechanical Ventilator 35 04/25/17 03:11 66 23 35 04/25/17 03:00 56 19 128/79 100 Mechanical Ventilator 35 04/25/17 02:00 60 16 122/63 100 Mechanical Ventilator 35 04/25/17 01:04 64 20 35 04/25/17 01:00 61 20 120/64 100 Mechanical Ventilator 35 04/25/17 00:00 98.3 67 17 127/61 100 Mechanical Ventilator 35 04/25/17 00:00 35 04/25/17 00:00 72 04/24/17 23:00 78 21 146/64 100 Mechanical Ventilator 35 04/24/17 22:00 65 22 114/56 100 Mechanical Ventilator 35 04/24/17 21:00 61 20 142/67 100 Mechanical Ventilator 35 04/24/17 20:45 56 19 35 04/24/17 20:00 35 04/24/17 20:00 142/67 04/24/17 20:00 98.9 59 19 120/59 100 Mechanical Ventilator 35 04/24/17 20:00 59 04/24/17 19:00 67 21 138/65 100 Mechanical Ventilator 35 04/24/17 18:52 63 21 35 04/24/17 18:00 70 25 143/60 100 Mechanical Ventilator 35 04/24/17 17:00 90 18 143/70 100 Mechanical Ventilator 35 04/24/17 16:47 70 16 35 04/24/17 16:00 98.5 74 22 144/67 100 Mechanical Ventilator 35 04/24/17 16:00 35 04/24/17 16:00 73 04/24/17 15:00 60 19 137/62 100 Mechanical Ventilator 35 04/24/17 14:47 60 20 35 04/24/17 14:00 60 23 137/64 100 Mechanical Ventilator 35 04/24/17 13:00 61 19 120/56 100 Mechanical Ventilator 35 04/24/17 12:59 61 18 35 04/24/17 12:00 35 04/24/17 12:00 61 04/24/17 12:00 98.4 67 19 136/62 100 Mechanical Ventilator 35 Condition: critical, grave HEENT: atraumatic Neck: full ROM Lungs: clear Heart: HR/BP stable, HR/BP unstable Abdomen: soft, non-tender Extremities: no C/C/E, edema Decubiti: location Micro: Microbiology Date/Time Source Procedure Growth Status 04/23/17 17:56 Blood Blood Culture - Preliminary NO GROWTH AFTER 24 HOURS Resulted 04/23/17 17:40 Blood Blood Culture - Preliminary NO GROWTH AFTER 24 HOURS Resulted 04/23/17 09:45 Sputum Gram Stain - Final Resulted 04/23/17 09:45 Sputum Sputum Culture Pending Resulted Accucheck: 184 Critical Care - Subjective ROS Limited/Unobtainable: Yes ICU Day: 2 Condition: critical EKG Rhythm: Sinus Rhythm FI02: 35 Vent Support Breath Rate: 16 Vent Support Mode: AC Vent Tidal Volume: 500 Sputum Amount: Scant PEEP: 5.0 PIP: 20 Tube Feeding Amount: 60 I&O: Intake and Output 04/24/17 04/25/17 19:00 07:00 Intake Total 1767.0 ml 2216.1 ml Balance 1767.0 ml 2216.1 ml Intake Free Water 50 ml IV Total 1407.0 ml 1736.1 ml Tube Feeding 60 ml 480 ml Blood Product 250 ml # Voids 525 425 # Bowel Movements 3 7 CXR: RLL infiltrate ET-Tube: 8.0 ET Position: 26 Labs: Laboratory Tests Test 04/25/17 10:20 White Blood Count 15.2 K/UL (4.8-10.8) H Red Blood Count 3.12 M/UL (4.70-6.10) L Hemoglobin 10.0 G/DL (14.2-18.0) #L Hematocrit 31.5 % (42.0-52.0) #L Mean Corpuscular Volume 101 FL (80-99) H Mean Corpuscular Hemoglobin 32.0 PG (27.0-31.0) H Mean Corpuscular Hemoglobin Concent 31.8 G/DL (32.0-36.0) L Red Cell Distribution Width 16.9 % (11.6-14.8) H Platelet Count 414 K/UL (150-450) Mean Platelet Volume 6.6 FL (6.5-10.1) Neutrophils (%) (Auto) 73.3 % (45.0-75.0) Lymphocytes (%) (Auto) 14.7 % (20.0-45.0) L Monocytes (%) (Auto) 6.7 % (1.0-10.0) Eosinophils (%) (Auto) 4.9 % (0.0-3.0) H Basophils (%) (Auto) 0.4 % (0.0-2.0) Sodium Level 143 mEQ/L (135-145) Potassium Level 4.3 mEQ/L (3.4-4.9) Chloride Level 105 mEQ/L (98-107) Carbon Dioxide Level 26 mEQ/L (20-30) Anion Gap 12 (5-15) Blood Urea Nitrogen 28 mg/dL (7-23) H Creatinine 0.7 mg/dL (0.7-1.2) Estimat Glomerular Filtration Rate mL/min (>60) Glucose Level 182 mg/dL (74-106) #H Calcium Level 9.4 mg/dL (8.6-10.2) Phosphorus Level 2.8 mg/dL (2.5-4.8) Magnesium Level 2.4 mg/dL (1.7-2.5) Total Bilirubin < 0.2 mg/dL (0.0-1.2) Aspartate Amino Transf (AST/SGOT) 30 U/L (5-40) Alanine Aminotransferase (ALT/SGPT) 32 U/L (3-41) Alkaline Phosphatase 123 U/L (40-129) Total Protein 6.8 g/dL (6.6-8.7) Albumin 2.5 g/dL (3.5-5.2) L Globulin 4.3 g/dL Albumin/Globulin Ratio 0.5 (1.0-2.7) L Vancomycin Level Trough 18.2 ug/mL (5.0-12.0) H MARGARITA ROBLES Apr 25, 2017 11:55
[2017-04-25] MEDS: Heparin 5000 units/ml inj SUBQ SCH ×2 (12:00→20:50)
[2017-04-25] MEDS: Ertapenem 1 GM in NS 55 ML IV SCH (20:51)
[2017-04-25] MEDS: Amikacin 1,200 MG in NS 110 ML IV SCH (22:33)
[2017-04-26] VITALS (24 sets, daily range): BP systolic 111–176; BP diastolic 58–121
[2017-04-26] MEDS: NovoLOG Insulin Flexpen SUBQ SCH ×4 (05:45→23:50)
[2017-04-26 06:18] LABS: BASOPHILS % (AUTO) 0.8 % (0.0-2.0); EOSINOPHILS % (AUTO) 9.4 % (0.0-3.0); LYMPHOCYTES % (AUTO) 17.2 % (20.0-45.0); MEAN CORPUSCULAR HEMOGLOBIN 31.9 PG (27.0-31.0); MEAN CORPUSCULAR HGB CONC 31.9 G/DL (32.0-36.0); MEAN CORPUSCULAR VOLUME 100 FL (80-99); MEAN PLATELET VOLUME 6.4 FL (6.5-10.1); MONOCYTES % (AUTO) 6.9 % (1.0-10.0); NEUTROPHILS % (AUTO) 65.7 % (45.0-75.0); PLATELET COUNT 456 K/UL (150-450); RED BLOOD COUNT 2.87 M/UL (4.70-6.10); RED CELL DISTRIBUTION WIDTH 15.9 % (11.6-14.8); WHITE BLOOD COUNT 13.3 K/UL (4.8-10.8)
[2017-04-26 06:23] LABS: ALANINE AMINOTRANSFERASE 29 U/L (3-41); ALBUMIN/GLOBULIN RATIO 0.6 (1.0-2.7); ANION GAP 15 (5-15); ASPARTATE AMINO TRANSFERASE 22 U/L (5-40); CALCIUM 9.4 mg/dL (8.6-10.2); CARBON DIOXIDE 24 mEQ/L (20-30); CHLORIDE 104 mEQ/L (98-107); CREATININE 0.7 mg/dL (0.7-1.2); HEMOLYSIS 1; MAGNESIUM 1.9 mg/dL (1.7-2.5); PHOSPHORUS 2.9 mg/dL (2.5-4.8); POTASSIUM 4.3 mEQ/L (3.4-4.9); SODIUM 143 mEQ/L (135-145); TOTAL PROTEIN 6.3 g/dL (6.6-8.7)
[2017-04-26] MEDS: LORazepam Inj 2mg/ml 1ml IV PRN ×3 (07:41→15:12)
--- NOTE | 2017-04-26 08:52 | Diagnostic Imaging Report ---
Indications: Abnormal renal function tests Technique: Transabdominal real-time grayscale and duplex Doppler imaging of the kidneys, retroperitoneum, and urinary bladder was performed Findings: Comparison: None Right kidney measures 9.8 cm in length. Diffuse cortical thinning and prominent sinus fat. Normal cortical echogenicity.. No stones, other focal lesions, hydronephrosis, or obvious perinephric abnormalities. Left kidney measures 11 cm in length. Diffuse cortical thinning and prominent sinus fat. Normal cortical echogenicity.. No stones, other focal lesions, hydronephrosis, or obvious perinephric abnormalities. The intrahepatic portion of inferior vena cava is patent and normal caliber. Incidentally noted is moderately echogenic non-shadowing material in the gallbladder lumen. The urinary bladder is collapsed around Burgos catheter. IMPRESSION: Bilateral renal cortical atrophy may represent senescent change or chronic medical renal disease Gallbladder sludge Burgos catheter
--- NOTE | 2017-04-26 08:52 | Diagnostic Imaging Report ---
Indications: Intubation Technique: Portable AP chest Findings: Comparison: None Endotracheal tube has been placed, tip 5 cm above brice. Pulmonary inflation is suboptimal. Bilateral parahilar interstitial infiltrates. Heart size, pulmonary vasculature within normal limits. No pleural abnormality. IMPRESSION: Endotracheal tube in good position Bilateral parahilar interstitial infiltrates, nonspecific, may represent pulmonary edema, etiology indeterminate. This correlates with [facility] preliminary report.
[2017-04-26] MEDS: Heparin 5000 units/ml inj SUBQ SCH ×2 (08:57→20:32)
[2017-04-26 09:32] LABS: ABG ALLEN TEST POSITIVE; ABG BASE EXCESS 3.5; ABG PCO2 44.3 mmHg (35.0-45.0)
--- NOTE | 2017-04-26 10:49 | Pulmonolgy Critical Care Note ---
Critical Care - Asmt/Plan Problems: (1) Acute respiratory failure (2) Acute encephalopathy (3) Anemia (4) Pneumonia (5) ATN (acute tubular necrosis) (6) Sepsis (7) Prostate cancer (8) Diabetes mellitus Respiratory: monitor respiratory rate, adjust FIO2, CXR Cardiac: continue to monitor HR/BP Renal: F/U I&O, decrease IV fluid, check electrolytes Infectious Disease: check cultures, continue antibiotics Gastrointestinal: continue feedings/current rate Endocrine: monitor blood sugar Neurologic: PRN Ativan Prophylaxis: Protonix, Heparin Notes Reviewed: renal, ID, GI - consulted for positive OB Discussed with: nurses, consultants Critical Care - Objective Last 24 Hour Vital Signs Date Time Temp Pulse Resp B/P Pulse Ox O2 Delivery O2 Flow Rate FiO2 04/26/17 10:00 65 24 162/78 100 Mechanical Ventilator 35 04/26/17 09:10 61 23 35 04/26/17 09:00 59 19 147/106 100 Mechanical Ventilator 35 04/26/17 08:00 98.9 60 21 151/70 100 Mechanical Ventilator 35 04/26/17 08:00 35 04/26/17 08:00 60 04/26/17 07:06 65 17 171/66 100 Mechanical Ventilator 35 04/26/17 07:06 70 31 35 04/26/17 06:00 71 21 151/64 100 Mechanical Ventilator 35 04/26/17 05:24 74 29 35 04/26/17 05:00 69 21 172/92 100 Mechanical Ventilator 35 04/26/17 04:00 98.3 68 20 174/80 100 Mechanical Ventilator 35 04/26/17 04:00 61 04/26/17 04:00 35 04/26/17 03:06 61 21 35 04/26/17 03:00 60 19 176/80 100 Mechanical Ventilator 35 04/26/17 02:00 58 19 130/61 100 Mechanical Ventilator 35 04/26/17 01:08 74 28 35 04/26/17 01:00 69 19 166/76 100 Mechanical Ventilator 35 04/26/17 00:00 98.3 62 16 114/70 100 Mechanical Ventilator 35 04/26/17 00:00 35 04/26/17 00:00 58 04/25/17 23:00 70 18 132/70 100 Mechanical Ventilator 35 04/25/17 22:54 64 21 35 04/25/17 22:00 67 27 170/73 100 Mechanical Ventilator 35 04/25/17 21:09 55 16 35 04/25/17 21:00 56 20 174/81 100 Mechanical Ventilator 35 04/25/17 20:00 55 04/25/17 20:00 35 04/25/17 20:00 150/63 04/25/17 20:00 98.1 57 18 144/61 100 Mechanical Ventilator 35 04/25/17 19:53 58 17 35 04/25/17 19:00 58 20 160/67 100 Mechanical Ventilator 35 04/25/17 18:00 59 25 147/71 100 Mechanical Ventilator 35 04/25/17 17:10 57 19 35 04/25/17 17:00 64 28 142/61 100 Mechanical Ventilator 35 04/25/17 16:00 55 04/25/17 16:00 97.4 54 19 132/59 100 Mechanical Ventilator 35 04/25/17 16:00 35 04/25/17 15:10 56 17 35 04/25/17 15:00 58 20 148/60 100 Mechanical Ventilator 35 04/25/17 14:00 57 16 124/58 100 Mechanical Ventilator 35 04/25/17 13:00 61 18 146/55 100 Mechanical Ventilator 35 04/25/17 12:58 60 18 35 04/25/17 12:00 35 04/25/17 12:00 97.8 59 18 147/62 100 Mechanical Ventilator 35 04/25/17 12:00 57 04/25/17 11:03 55 18 35 04/25/17 11:00 59 19 119/52 100 Mechanical Ventilator 35 Status: sedated Condition: critical HEENT: atraumatic Neck: full ROM Lungs: chest wall tender Heart: HR/BP stable Abdomen: soft, non-tender, active bowel sounds, feeding tube Extremities: no C/C/E Micro: Microbiology Date/Time Source Procedure Growth Status 04/23/17 17:56 Blood Blood Culture - Preliminary NO GROWTH AFTER 48 HOURS Resulted 04/23/17 17:40 Blood Blood Culture - Preliminary NO GROWTH AFTER 48 HOURS Resulted 04/24/17 03:30 Nasal Nares MRSA Culture - Final Staphylococcus Aureus - Mrsa Complete 04/25/17 05:49 Stool Clostridium difficile Toxin Assay - Final Complete 04/25/17 04:00 Urine,Clean Catch Urine Culture - Preliminary NO GROWTH Resulted 04/24/17 03:30 Rectum VRE Culture - Final Enterococcus Faecalis - Vre Complete Accucheck: 174 Critical Care - Subjective ROS Limited/Unobtainable: Yes ICU Day: 3 Intubation Day: 3 Interval Events: OB positive Condition: critical EKG Rhythm: Sinus Rhythm FI02: 35 Vent Support Breath Rate: 16 Vent Support Mode: AC Vent Tidal Volume: 500 Sputum Amount: Small PEEP: 5.0 PIP: 24 Fluids: NS 100 cc.hour Tube Feeding Amount: 70 I&O: Intake and Output 04/25/17 04/26/17 19:00 07:00 Intake Total 2045.0 ml 2278.3 ml Output Total 600 ml 652 ml Balance 1445.0 ml 1626.3 ml Intake Free Water 80 ml IV Total 1225.0 ml 1438.3 ml Tube Feeding 740 ml 840 ml Output Urine Total 600 ml 650 ml Stool Total 2 ml # Voids 100 # Bowel Movements 1 82 CXR: ET in good position ET-Tube: 8.0 ET Position: 26 Labs: Laboratory Tests Test 04/26/17 04:45 04/26/17 09:10 White Blood Count 13.3 K/UL (4.8-10.8) H Red Blood Count 2.87 M/UL (4.70-6.10) L Hemoglobin 9.2 G/DL (14.2-18.0) L Hematocrit 28.7 % (42.0-52.0) L Mean Corpuscular Volume 100 FL (80-99) H Mean Corpuscular Hemoglobin 31.9 PG (27.0-31.0) H Mean Corpuscular Hemoglobin Concent 31.9 G/DL (32.0-36.0) L Red Cell Distribution Width 15.9 % (11.6-14.8) H Platelet Count 456 K/UL (150-450) H Mean Platelet Volume 6.4 FL (6.5-10.1) L Neutrophils (%) (Auto) 65.7 % (45.0-75.0) Lymphocytes (%) (Auto) 17.2 % (20.0-45.0) L Monocytes (%) (Auto) 6.9 % (1.0-10.0) Eosinophils (%) (Auto) 9.4 % (0.0-3.0) H Basophils (%) (Auto) 0.8 % (0.0-2.0) Sodium Level 143 mEQ/L (135-145) Potassium Level 4.3 mEQ/L (3.4-4.9) Chloride Level 104 mEQ/L (98-107) Carbon Dioxide Level 24 mEQ/L (20-30) Anion Gap 15 (5-15) Blood Urea Nitrogen 19 mg/dL (7-23) Creatinine 0.7 mg/dL (0.7-1.2) Estimat Glomerular Filtration Rate mL/min (>60) Glucose Level 188 mg/dL (74-106) H Calcium Level 9.4 mg/dL (8.6-10.2) Phosphorus Level 2.9 mg/dL (2.5-4.8) Magnesium Level 1.9 mg/dL (1.7-2.5) Total Bilirubin < 0.2 mg/dL (0.0-1.2) Aspartate Amino Transf (AST/SGOT) 22 U/L (5-40) Alanine Aminotransferase (ALT/SGPT) 29 U/L (3-41) Alkaline Phosphatase 149 U/L (40-129) H Total Protein 6.3 g/dL (6.6-8.7) L Albumin 2.4 g/dL (3.5-5.2) L Globulin 3.9 g/dL Albumin/Globulin Ratio 0.6 (1.0-2.7) L Arterial Blood pH 7.424 (7.350-7.450) Arterial Blood Partial Pressure CO2 44.3 mmHg (35.0-45.0) Arterial Blood Partial Pressure O2 105.6 mmHg (75.0-100.0) H Arterial Blood HCO3 28.3 mmol/L (22.0-26.0) H Arterial Blood Oxygen Saturation 97.9 % (92.0-98.0) Arterial Blood Base Excess 3.5 Angelo Test Positive MARGARITA ROBLES Apr 26, 2017 10:49
[2017-04-26] MEDS: Vancomycin 1.25 GM in D5W 275 ML IVPB SCH ×2 (11:14→22:59)
--- NOTE | 2017-04-26 11:46 | General Progress Note ---
Assessment/Plan Status: unchanged Status Narrative Cr down to wnl from 1.3 Assessment/Plan Status; Renal failure- High K , resolved Sever Anemia - Transfused- Primary Impression: Respiratory failure Pneumonia Sepsis Status post stroke Plan; Hydrate- Antibiotics Avoid nephrotoxics Transfused one unit 04/24 monitor renal parameters Subjective ROS Limited/Unobtainable: Yes Allergies: Coded Allergies: No Known Allergies (Unverified , 04/23/17) Objective Last 24 Hour Vital Signs Date Time Temp Pulse Resp B/P Pulse Ox O2 Delivery O2 Flow Rate FiO2 04/26/17 11:03 74 24 35 04/26/17 11:00 69 22 146/121 100 Mechanical Ventilator 35 04/26/17 10:00 65 24 162/78 100 Mechanical Ventilator 35 04/26/17 09:10 61 23 35 04/26/17 09:00 59 19 147/106 100 Mechanical Ventilator 35 04/26/17 08:00 98.9 60 21 151/70 100 Mechanical Ventilator 35 04/26/17 08:00 35 04/26/17 08:00 60 04/26/17 07:06 65 17 171/66 100 Mechanical Ventilator 35 04/26/17 07:06 70 31 35 04/26/17 06:00 71 21 151/64 100 Mechanical Ventilator 35 04/26/17 05:24 74 29 35 04/26/17 05:00 69 21 172/92 100 Mechanical Ventilator 35 04/26/17 04:00 98.3 68 20 174/80 100 Mechanical Ventilator 35 04/26/17 04:00 61 04/26/17 04:00 35 04/26/17 03:06 61 21 35 04/26/17 03:00 60 19 176/80 100 Mechanical Ventilator 35 04/26/17 02:00 58 19 130/61 100 Mechanical Ventilator 35 04/26/17 01:08 74 28 35 04/26/17 01:00 69 19 166/76 100 Mechanical Ventilator 35 04/26/17 00:00 98.3 62 16 114/70 100 Mechanical Ventilator 35 04/26/17 00:00 35 04/26/17 00:00 58 04/25/17 23:00 70 18 132/70 100 Mechanical Ventilator 35 04/25/17 22:54 64 21 35 04/25/17 22:00 67 27 170/73 100 Mechanical Ventilator 35 04/25/17 21:09 55 16 35 04/25/17 21:00 56 20 174/81 100 Mechanical Ventilator 35 04/25/17 20:00 55 04/25/17 20:00 35 04/25/17 20:00 150/63 04/25/17 20:00 98.1 57 18 144/61 100 Mechanical Ventilator 35 04/25/17 19:53 58 17 35 04/25/17 19:00 58 20 160/67 100 Mechanical Ventilator 35 04/25/17 18:00 59 25 147/71 100 Mechanical Ventilator 35 04/25/17 17:10 57 19 35 04/25/17 17:00 64 28 142/61 100 Mechanical Ventilator 35 04/25/17 16:00 55 04/25/17 16:00 97.4 54 19 132/59 100 Mechanical Ventilator 35 04/25/17 16:00 35 04/25/17 15:10 56 17 35 04/25/17 15:00 58 20 148/60 100 Mechanical Ventilator 35 04/25/17 14:00 57 16 124/58 100 Mechanical Ventilator 35 04/25/17 13:00 61 18 146/55 100 Mechanical Ventilator 35 04/25/17 12:58 60 18 35 04/25/17 12:00 35 04/25/17 12:00 97.8 59 18 147/62 100 Mechanical Ventilator 35 04/25/17 12:00 57 Intake and Output 04/25/17 04/26/17 19:00 07:00 Intake Total 2045.0 ml 2278.3 ml Output Total 600 ml 652 ml Balance 1445.0 ml 1626.3 ml Intake Free Water 80 ml IV Total 1225.0 ml 1438.3 ml Tube Feeding 740 ml 840 ml Output Urine Total 600 ml 650 ml Stool Total 2 ml # Voids 100 # Bowel Movements 1 82 Laboratory Tests 04/26/17 04:45: White Blood Count 13.3H, Red Blood Count 2.87L, Hemoglobin 9.2L, Hematocrit 28.7L, Mean Corpuscular Volume 100H, Mean Corpuscular Hemoglobin 31.9H, Mean Corpuscular Hemoglobin Concent 31.9L, Red Cell Distribution Width 15.9H, Platelet Count 456H, Mean Platelet Volume 6.4L, Neutrophils (%) (Auto) 65.7, Lymphocytes (%) (Auto) 17.2L, Monocytes (%) (Auto) 6.9, Eosinophils (%) (Auto) 9.4H, Basophils (%) (Auto) 0.8, Sodium Level 143, Potassium Level 4.3, Chloride Level 104, Carbon Dioxide Level 24, Anion Gap 15, Blood Urea Nitrogen 19, Creatinine 0.7, Estimat Glomerular Filtration Rate , Glucose Level 188H, Calcium Level 9.4, Phosphorus Level 2.9, Magnesium Level 1.9, Total Bilirubin < 0.2, Aspartate Amino Transf (AST/SGOT) 22, Alanine Aminotransferase (ALT/SGPT) 29, Alkaline Phosphatase 149H, Total Protein 6.3L, Albumin 2.4L, Globulin 3.9, Albumin/Globulin Ratio 0.6L 04/26/17 09:10: Arterial Blood pH 7.424, Arterial Blood Partial Pressure CO2 44.3, Arterial Blood Partial Pressure O2 105.6H, Arterial Blood HCO3 28.3H, Arterial Blood Oxygen Saturation 97.9, Arterial Blood Base Excess 3.5, Angelo Test Positive Height (Feet): 6 Height (Inches): 1.00 Weight (Pounds): 198 General Appearance: no apparent distress Cardiovascular: normal rate Respiratory/Chest: decreased breath sounds Abdomen: soft Objective no change SANDOVAL JULES Apr 26, 2017 11:46
--- NOTE | 2017-04-26 11:53 | Diagnostic Imaging Report ---
Indication: DYSPNEA Technique: One view of the chest Comparison: [id number] Findings: Stable satisfactory position of endotracheal tube. Slightly prominent reticular markings are seen in the right perihilar region and lung base, questionably some focal patchy airspace consolidation at the right lung base. The remainder the lungs are clear. The pleural spaces are clear. Findings are overall unchanged. Impression: Unchanged, over one day, findings as above.
--- NOTE | 2017-04-26 15:48 | GI Initial Consult Note ---
Barfield,Fara Schuyler N.PRyland 04/26/17 1548: History of Present Illness General Date patient seen: Apr 26, 2017 Time patient seen: 13:00 Reason for Hospitalization: Dyspnea/Respdistress Referring physician: MARGARITA FRIED Reason for Consultation: ANEMIA Present Illness HPI Patient presents from SNF with resp distress, hypoxia and decreased mentation. Post stroke. H/O pneumonia in past. Unable to answer questions. Accucheck high in field. No other history available initially. Son later states cough for several days. GI Consult. HPI as noted above. GI consulted for reports of diarrhea and anemia. ROS limited, pt intubated in ICU. PEG noted. Pt presents today anemia requiring blood transfusion, positive OB stool, elevated alkaline phosphatase, iron deficiency, and hypoalbuminemia. Unknown history of endoscopic procedures. Home Meds Reported Medications Sennosides (Senokot) 8.6 Mg Tablet, 8.6 MG PO DAILY, TAB 04/23/17 Losartan Potassium* (LOSARTAN POTASSIUM*) 50 Mg Tablet, 50 MG PEG BID, TAB 04/23/17 Isosorbide Dinitrate (ISOSORBIDE DINITRATE*) 5 Mg Tablet, 10 MG PEG TID, #30 TAB 0 Refills 04/23/17 Folic Acid* (FOLIC ACID*) 1 Mg Tablet, 400 MCG PEG DAILY, TAB 04/23/17 Clonidine Hcl* (CATAPRES*) 0.1 Mg Tablet, 0.1 MG PEG DAILY, TAB 04/23/17 Amlodipine Besylate (Norvasc) 10 Mg Tablet, 10 MG GT DAILY, TAB 04/23/17 Atorvastatin Calcium* (LIPITOR*) 80 Mg Tablet, 80 MG GT BEDTIME, TAB 04/23/17 Hydralazine Hcl* (HYDRALAZINE HCL*) 50 Mg Tablet, 50 MG ORAL EVERY 8 HOURS, TAB 04/23/17 Aspirin* (ECOTRIN*) 325 Mg Tablet.dr, 81 MG ORAL DAILY, TAB 04/23/17 Famotidine (PEPCID) 20 Mg Tablet, 20 MG ORAL BEDTIME, #7 TAB 0 Refills 04/23/17 Enoxaparin* (LOVENOX*) 40 Mg/0.4 Ml Inj, 40 MG SUBQ DAILY 04/23/17 Med list reviewed/reconciled: Yes Allergies: Coded Allergies: No Known Allergies (Unverified , 04/23/17) Patient History Limited by: medical condition History Provided By: Medical Record PMH Narrative Past Medical History: see triage record Past Surgical History: other - PEG Social History Narrative SNF, full code Reviewed Nursing Documentation: PMH: Agreed, PSxH: Agreed Review of Systems All Other Systems: limited Physical Exam Vital Signs Date Time Temp Pulse Resp B/P Pulse Ox O2 Delivery O2 Flow Rate FiO2 04/23/17 17:47 98.2 83 20 113/66 99 Non-Rebreather 15.0 04/23/17 18:35 35 Sp02 EP Interpretation: reviewed Labs Laboratory Tests Test 04/26/17 04:45 04/26/17 09:10 White Blood Count 13.3 K/UL (4.8-10.8) H Red Blood Count 2.87 M/UL (4.70-6.10) L Hemoglobin 9.2 G/DL (14.2-18.0) L Hematocrit 28.7 % (42.0-52.0) L Mean Corpuscular Volume 100 FL (80-99) H Mean Corpuscular Hemoglobin 31.9 PG (27.0-31.0) H Mean Corpuscular Hemoglobin Concent 31.9 G/DL (32.0-36.0) L Red Cell Distribution Width 15.9 % (11.6-14.8) H Platelet Count 456 K/UL (150-450) H Mean Platelet Volume 6.4 FL (6.5-10.1) L Neutrophils (%) (Auto) 65.7 % (45.0-75.0) Lymphocytes (%) (Auto) 17.2 % (20.0-45.0) L Monocytes (%) (Auto) 6.9 % (1.0-10.0) Eosinophils (%) (Auto) 9.4 % (0.0-3.0) H Basophils (%) (Auto) 0.8 % (0.0-2.0) Sodium Level 143 mEQ/L (135-145) Potassium Level 4.3 mEQ/L (3.4-4.9) Chloride Level 104 mEQ/L (98-107) Carbon Dioxide Level 24 mEQ/L (20-30) Anion Gap 15 (5-15) Blood Urea Nitrogen 19 mg/dL (7-23) Creatinine 0.7 mg/dL (0.7-1.2) Estimat Glomerular Filtration Rate mL/min (>60) Glucose Level 188 mg/dL (74-106) H Calcium Level 9.4 mg/dL (8.6-10.2) Phosphorus Level 2.9 mg/dL (2.5-4.8) Magnesium Level 1.9 mg/dL (1.7-2.5) Total Bilirubin < 0.2 mg/dL (0.0-1.2) Aspartate Amino Transf (AST/SGOT) 22 U/L (5-40) Alanine Aminotransferase (ALT/SGPT) 29 U/L (3-41) Alkaline Phosphatase 149 U/L (40-129) H Total Protein 6.3 g/dL (6.6-8.7) L Albumin 2.4 g/dL (3.5-5.2) L Globulin 3.9 g/dL Albumin/Globulin Ratio 0.6 (1.0-2.7) L Arterial Blood pH 7.424 (7.350-7.450) Arterial Blood Partial Pressure CO2 44.3 mmHg (35.0-45.0) Arterial Blood Partial Pressure O2 105.6 mmHg (75.0-100.0) H Arterial Blood HCO3 28.3 mmol/L (22.0-26.0) H Arterial Blood Oxygen Saturation 97.9 % (92.0-98.0) Arterial Blood Base Excess 3.5 Angelo Test Positive General Appearance: well appearing, no apparent distress, alert Head: normocephalic EENT: normal ENT inspection Neck: supple Respiratory: normal breath sounds, no respiratory distress Cardiovascular: normal rate Gastrointestinal: soft, gt - c/d/i Rectal: deferred Skin: normal color, no rash, warm/dry Current Medications Current Medications Medications (Trade) Dose Ordered Sig/Guzman Route PRN Reason Start Time Stop Time Status Last Admin Dose Admin Acetaminophen (Tylenol) 650 mg Q4H PRN ORAL fever 04/23/17 19:15 05/23/17 19:14 04/23/17 21:39 Albuterol/ Ipratropium 3 ml 3 ml Q4H PRN HHN Shortness of Breath 04/23/17 19:15 04/28/17 19:14 Amikacin Protocol (Amikacin pharmacy to dose) 1 ea DAILY PRN MISC PRN RX PROTOCOL 04/23/17 20:00 05/23/17 19:59 Amikacin Sulfate 1200 mg/Sodium Chloride 114.8 ml @ 114.8 mls/ hr Q24H IV 04/23/17 22:00 04/30/17 21:59 04/25/17 22:33 Dextrose (Dextrose 50%) STAT PRN IV Hypoglycemia 04/24/17 12:00 05/24/17 11:59 Ertapenem 1 gm/ Sodium Chloride 55 ml @ 110 mls/hr Q24H IV 04/23/17 20:30 04/28/17 20:29 04/25/17 20:51 Heparin Sodium (Porcine) (Heparin 5000 units/ml) 5,000 units EVERY 12 HOURS SUBQ 04/23/17 21:00 05/23/17 20:59 04/26/17 08:57 Hydralazine HCl (Apresoline) 10 mg Q4H PRN IV SBP>160 04/26/17 13:45 05/26/17 13:44 04/26/17 13:53 Insulin Aspart (NovoLOG) Q6HR SUBQ 04/24/17 18:00 05/24/17 17:59 04/26/17 11:18 Lansoprazole (Prevacid) 30 mg DAILY GT 04/25/17 12:00 05/25/17 11:59 04/26/17 08:55 Lorazepam 2 mg 2 mg Q2H PRN IV For Anxiety 04/23/17 19:15 04/30/17 19:14 04/26/17 15:12 Morphine Sulfate (Morphine Sulfate) 4 mg Q4H PRN IVP Severe Pain (Pain Scale 7-10) 04/23/17 19:15 04/30/17 19:14 04/25/17 23:24 Norepinephrine Bitartrate/ Dextrose (Levophed/D5W) 254 ml @ 0 mls/hr Q24H IV 04/23/17 20:00 05/23/17 19:59 Ondansetron HCl (Zofran) 4 mg Q6H PRN IVP Nausea & Vomiting 04/23/17 19:15 05/23/17 19:14 Polyethylene Glycol (Miralax) 17 gm DAILYPRN PRN ORAL Constipation 04/23/17 19:15 05/23/17 19:14 Vancomycin HCl (Vanco rx to dose) 1 ea DAILY PRN MISC PRN RX PROTOCOL 04/23/17 20:00 05/23/17 19:59 Vancomycin HCl/ Dextrose (Vancomycin/D5W) 275 ml @ 183.3 mls/ hr Q12H IVPB 04/23/17 23:00 04/28/17 22:59 04/26/17 11:14 GI: Plan Problems: (1) Diarrhea (2) Iron deficiency (3) Occult blood in stools (4) Hypoalbuminemia (5) Anemia (6) Sepsis (7) Diabetes mellitus Plan cdiff negative occult blood stool positive GT present iron deficient >> venofer hold GTF for 3 hours, gastric lavage 500 cc r/o UGIB will consider colonoscopy wednesday if negative Imodium prn if diarrhea persists ppi GTFs per dietary fu labs Discussed with Dr. Luevano. Thank you for referring this patient, we will follow. JOLIE LUEVANO 04/28/17 0910: History of Present Illness General Reason for Hospitalization: Dyspnea/Respdistress Present Illness Home Meds Reported Medications Sennosides (Senokot) 8.6 Mg Tablet, 8.6 MG PO DAILY, TAB 04/23/17 Losartan Potassium* (LOSARTAN POTASSIUM*) 50 Mg Tablet, 50 MG PEG BID, TAB 04/23/17 Isosorbide Dinitrate (ISOSORBIDE DINITRATE*) 5 Mg Tablet, 10 MG PEG TID, #30 TAB 0 Refills 04/23/17 Folic Acid* (FOLIC ACID*) 1 Mg Tablet, 400 MCG PEG DAILY, TAB 04/23/17 Clonidine Hcl* (CATAPRES*) 0.1 Mg Tablet, 0.1 MG PEG DAILY, TAB 04/23/17 Amlodipine Besylate (Norvasc) 10 Mg Tablet, 10 MG GT DAILY, TAB 04/23/17 Atorvastatin Calcium* (LIPITOR*) 80 Mg Tablet, 80 MG GT BEDTIME, TAB 04/23/17 Hydralazine Hcl* (HYDRALAZINE HCL*) 50 Mg Tablet, 50 MG ORAL EVERY 8 HOURS, TAB 04/23/17 Aspirin* (ECOTRIN*) 325 Mg Tablet.dr, 81 MG ORAL DAILY, TAB 04/23/17 Famotidine (PEPCID) 20 Mg Tablet, 20 MG ORAL BEDTIME, #7 TAB 0 Refills 04/23/17 Enoxaparin* (LOVENOX*) 40 Mg/0.4 Ml Inj, 40 MG SUBQ DAILY 04/23/17 Allergies: Coded Allergies: No Known Allergies (Unverified , 04/23/17) GI: Plan Plan The patient was seen and examined at bedside and all new and available data was reviewed in the patients chart. I agree with the above findings, impression and plan. (Patient seen earlier today. Signature stamp does not reflect patient encounter time.). -Samantha Benito MDh Schuyler Langley Apr 26, 2017 15:48 JOLIE LUEVANO Apr 28, 2017 09:10
[2017-04-26] MEDS: Morphine Sulfate 4mg/ml Inj IVP PRN (18:28)
--- NOTE | 2017-04-26 19:57 | Cardiology Report ---
APPROVED REPORT EXAM: Two-dimensional and M-mode echocardiogram with Doppler and color Doppler. INDICATION Left ventricular function Technically difficult study due to poor acoustic windows. M-mode measurements not obtainable due to cardiac structure. Study quality precludes accurate assessment of regional wall motion, overall left ventricular systolic function is mildly decreased, there is paradoxical septal wall motion. LVEF is estimated at approximately 45-50%. No evidence of pericardial fat or effusion. Focal aortic valve sclerosis with adequate cusp excursion Thickened mitral valve leaflets with normal excursion. Mitral annulus and aortic root calcification. Pulmonic valve not well visualized. Normal tricuspid valve structure. IVC dilated at 2.4cm with no physiological collapse. RA pressure of 20mmHg. A color flow and spectral Doppler study was performed and revealed: No aortic regurgitation. No mitral regurgitation. Left ventricular diastolic dysfunction grade 1. Mild tricuspid regurgitation. Tricuspid systolic velocities suggests peak right ventricular systolic pressure of 45 mmHg Consistent with mild pulmonary hypertension.
[2017-04-26] MEDS: Ertapenem 1 GM in NS 55 ML IV SCH (20:12)
--- NOTE | 2017-04-26 20:13 | Cardiology Report ---
APPROVED REPORT EKG Measurement Heart [id number] Normal sinus rhythm Normal ECG
--- NOTE | 2017-04-26 20:46 | Infectious Diseases Prog Note ---
Assessment/Plan Assessment/Plan ASSESSMENT: 71 y/o male with: // Probable HCAP - SCx S.aureus ( sensi pending ) - CXR 04/24: Decrease in parahilar interstitial opacities with improved pulmonary inflation Persistent focal opacities in right perihilar/infrahilar regions, nonspecific, may represent atelectasis or focal pneumonia, stable // Negative C.difficile 04/25 // Severe sepsis - resolved lactic acidosis // Leukocytosis - repeat CBC pending // Low grade fever x1 // Acute VDRF - intubated 04/24 // Acute renal insufficiency - resolved // DM2 // CVA // Dysphagia SP PEG // SNF resident // MRSA, VRE colonized // NKDA // DNR PLAN: - continue empiric IV vancomycin, invanz, amikacin d# 3 / . May de-escalate soon - f/u cultures, adjust ABX accordingly - monitor CBC, temperatures - monitor BMP - monitor CXR - vent support, wean as tolerated Subjective Allergies: Coded Allergies: No Known Allergies (Unverified , 04/23/17) Subjective low grade fever x1 resolved, WBC improved remains on vent Objective Vital Signs Last 24 Hour Vital Signs Date Time Temp Pulse Resp B/P Pulse Ox O2 Delivery O2 Flow Rate FiO2 04/26/17 20:00 150/90 04/26/17 19:30 70 24 35 04/26/17 19:00 72 24 150/77 100 Mechanical Ventilator 35 04/26/17 18:58 98.5 04/26/17 18:00 74 23 175/74 100 Mechanical Ventilator 35 04/26/17 17:00 71 22 158/73 100 Mechanical Ventilator 35 04/26/17 16:56 84 26 35 04/26/17 16:00 98.5 82 26 152/72 99 Mechanical Ventilator 35 04/26/17 16:00 35 04/26/17 16:00 82 04/26/17 15:18 85 35 35 04/26/17 15:00 80 21 160/66 99 Mechanical Ventilator 35 04/26/17 14:00 78 21 161/65 100 Mechanical Ventilator 35 04/26/17 13:53 175/67 04/26/17 13:00 65 21 175/67 100 Mechanical Ventilator 35 04/26/17 12:56 61 19 35 04/26/17 12:00 35 04/26/17 12:00 67 04/26/17 12:00 98.7 65 21 164/76 100 Mechanical Ventilator 35 04/26/17 11:03 74 24 35 04/26/17 11:00 69 22 146/121 100 Mechanical Ventilator 35 04/26/17 10:00 65 24 162/78 100 Mechanical Ventilator 35 04/26/17 09:10 61 23 35 04/26/17 09:00 59 19 147/106 100 Mechanical Ventilator 35 04/26/17 08:00 98.9 60 21 151/70 100 Mechanical Ventilator 35 04/26/17 08:00 35 04/26/17 08:00 60 04/26/17 07:06 65 17 171/66 100 Mechanical Ventilator 35 04/26/17 07:06 70 31 35 04/26/17 06:00 71 21 151/64 100 Mechanical Ventilator 35 04/26/17 05:24 74 29 35 04/26/17 05:00 69 21 172/92 100 Mechanical Ventilator 35 04/26/17 04:00 98.3 68 20 174/80 100 Mechanical Ventilator 35 04/26/17 04:00 61 04/26/17 04:00 35 04/26/17 03:06 61 21 35 04/26/17 03:00 60 19 176/80 100 Mechanical Ventilator 35 04/26/17 02:00 58 19 130/61 100 Mechanical Ventilator 35 04/26/17 01:08 74 28 35 04/26/17 01:00 69 19 166/76 100 Mechanical Ventilator 35 04/26/17 00:00 98.3 62 16 114/70 100 Mechanical Ventilator 35 04/26/17 00:00 35 04/26/17 00:00 58 04/25/17 23:00 70 18 132/70 100 Mechanical Ventilator 35 04/25/17 22:54 64 21 35 04/25/17 22:00 67 27 170/73 100 Mechanical Ventilator 35 04/25/17 21:09 55 16 35 04/25/17 21:00 56 20 174/81 100 Mechanical Ventilator 35 Height (Feet): 6 Height (Inches): 1.00 Weight (Pounds): 198 General Appearance: other - intubated Respiratory/Chest: decreased breath sounds Cardiovascular: normal rate, regular rhythm Abdomen: normal bowel sounds, soft, non tender, non distended Microbiology Date/Time Source Procedure Growth Status 04/24/17 03:30 Nasal Nares MRSA Culture - Final Staphylococcus Aureus - Mrsa Complete 04/25/17 05:49 Stool Clostridium difficile Toxin Assay - Final Complete 04/25/17 04:00 Urine,Clean Catch Urine Culture - Preliminary NO GROWTH Resulted 04/24/17 03:30 Rectum VRE Culture - Final Enterococcus Faecalis - Vre Complete Laboratory Tests Test 04/26/17 04:45 04/26/17 09:10 White Blood Count 13.3 K/UL (4.8-10.8) H Red Blood Count 2.87 M/UL (4.70-6.10) L Hemoglobin 9.2 G/DL (14.2-18.0) L Hematocrit 28.7 % (42.0-52.0) L Mean Corpuscular Volume 100 FL (80-99) H Mean Corpuscular Hemoglobin 31.9 PG (27.0-31.0) H Mean Corpuscular Hemoglobin Concent 31.9 G/DL (32.0-36.0) L Red Cell Distribution Width 15.9 % (11.6-14.8) H Platelet Count 456 K/UL (150-450) H Mean Platelet Volume 6.4 FL (6.5-10.1) L Neutrophils (%) (Auto) 65.7 % (45.0-75.0) Lymphocytes (%) (Auto) 17.2 % (20.0-45.0) L Monocytes (%) (Auto) 6.9 % (1.0-10.0) Eosinophils (%) (Auto) 9.4 % (0.0-3.0) H Basophils (%) (Auto) 0.8 % (0.0-2.0) Sodium Level 143 mEQ/L (135-145) Potassium Level 4.3 mEQ/L (3.4-4.9) Chloride Level 104 mEQ/L (98-107) Carbon Dioxide Level 24 mEQ/L (20-30) Anion Gap 15 (5-15) Blood Urea Nitrogen 19 mg/dL (7-23) Creatinine 0.7 mg/dL (0.7-1.2) Estimat Glomerular Filtration Rate mL/min (>60) Glucose Level 188 mg/dL (74-106) H Calcium Level 9.4 mg/dL (8.6-10.2) Phosphorus Level 2.9 mg/dL (2.5-4.8) Magnesium Level 1.9 mg/dL (1.7-2.5) Total Bilirubin < 0.2 mg/dL (0.0-1.2) Aspartate Amino Transf (AST/SGOT) 22 U/L (5-40) Alanine Aminotransferase (ALT/SGPT) 29 U/L (3-41) Alkaline Phosphatase 149 U/L (40-129) H Total Protein 6.3 g/dL (6.6-8.7) L Albumin 2.4 g/dL (3.5-5.2) L Globulin 3.9 g/dL Albumin/Globulin Ratio 0.6 (1.0-2.7) L Arterial Blood pH 7.424 (7.350-7.450) Arterial Blood Partial Pressure CO2 44.3 mmHg (35.0-45.0) Arterial Blood Partial Pressure O2 105.6 mmHg (75.0-100.0) H Arterial Blood HCO3 28.3 mmol/L (22.0-26.0) H Arterial Blood Oxygen Saturation 97.9 % (92.0-98.0) Arterial Blood Base Excess 3.5 Angelo Test Positive Current Medications Medications (Trade) Dose Ordered Sig/Guzman Route PRN Reason Start Time Stop Time Status Last Admin Dose Admin Acetaminophen (Tylenol) 650 mg Q4H PRN ORAL fever 04/23/17 19:15 05/23/17 19:14 04/23/17 21:39 Albuterol/ Ipratropium 3 ml 3 ml Q4H PRN HHN Shortness of Breath 04/23/17 19:15 04/28/17 19:14 Amikacin Protocol (Amikacin pharmacy to dose) 1 ea DAILY PRN MISC PRN RX PROTOCOL 04/23/17 20:00 05/23/17 19:59 Amikacin Sulfate 1200 mg/Sodium Chloride 114.8 ml @ 114.8 mls/ hr Q24H IV 04/23/17 22:00 04/30/17 21:59 04/25/17 22:33 Dextrose (Dextrose 50%) STAT PRN IV Hypoglycemia 04/24/17 12:00 05/24/17 11:59 Ertapenem 1 gm/ Sodium Chloride 55 ml @ 110 mls/hr Q24H IV 04/23/17 20:30 04/28/17 20:29 04/26/17 20:12 Heparin Sodium (Porcine) (Heparin 5000 units/ml) 5,000 units EVERY 12 HOURS SUBQ 04/23/17 21:00 05/23/17 20:59 04/26/17 20:32 Hydralazine HCl (Apresoline) 10 mg Q4H PRN IV SBP>160 04/26/17 13:45 05/26/17 13:44 04/26/17 13:53 Insulin Aspart (NovoLOG) Q6HR SUBQ 04/24/17 18:00 05/24/17 17:59 04/26/17 18:00 Lansoprazole (Prevacid) 30 mg DAILY GT 04/25/17 12:00 05/25/17 11:59 04/26/17 08:55 Lorazepam 2 mg 2 mg Q2H PRN IV For Anxiety 04/23/17 19:15 04/30/17 19:14 04/26/17 15:12 Morphine Sulfate (Morphine Sulfate) 4 mg Q4H PRN IVP Severe Pain (Pain Scale 7-10) 04/23/17 19:15 04/30/17 19:14 04/26/17 18:28 Norepinephrine Bitartrate/ Dextrose (Levophed/D5W) 254 ml @ 0 mls/hr Q24H IV 04/23/17 20:00 05/23/17 19:59 Ondansetron HCl (Zofran) 4 mg Q6H PRN IVP Nausea & Vomiting 04/23/17 19:15 05/23/17 19:14 Polyethylene Glycol (Miralax) 17 gm DAILYPRN PRN ORAL Constipation 04/23/17 19:15 05/23/17 19:14 Vancomycin HCl (Vanco rx to dose) 1 ea DAILY PRN MISC PRN RX PROTOCOL 04/23/17 20:00 05/23/17 19:59 Vancomycin HCl/ Dextrose (Vancomycin/D5W) 275 ml @ 183.3 mls/ hr Q12H IVPB 04/23/17 23:00 04/28/17 22:59 04/26/17 11:14 GLORIA HOLGUIN 26, 2017 20:46
[2017-04-26] MEDS: Amikacin 1,200 MG in NS 110 ML IV SCH (21:44)
[2017-04-27] VITALS (24 sets, daily range): BP systolic 136–188; BP diastolic 57–82
[2017-04-27] MEDS: LORazepam Inj 2mg/ml 1ml IV PRN ×2 (03:14→08:21)
[2017-04-27 05:08] LABS: EOSINOPHILS % (AUTO) 11.2 % (0.0-3.0); LYMPHOCYTES % (AUTO) 19.7 % (20.0-45.0); MEAN CORPUSCULAR HEMOGLOBIN 31.3 PG (27.0-31.0); MEAN CORPUSCULAR HGB CONC 31.6 G/DL (32.0-36.0); MEAN CORPUSCULAR VOLUME 99 FL (80-99); MEAN PLATELET VOLUME 5.9 FL (6.5-10.1); NEUTROPHILS % (AUTO) 61.2 % (45.0-75.0); PLATELET COUNT 467 K/UL (150-450); RED BLOOD COUNT 2.77 M/UL (4.70-6.10); RED CELL DISTRIBUTION WIDTH 15.5 % (11.6-14.8); WHITE BLOOD COUNT 10.3 K/UL (4.8-10.8)
[2017-04-27 05:40] LABS: ALANINE AMINOTRANSFERASE 29 U/L (3-41); ALBUMIN/GLOBULIN RATIO 0.6 (1.0-2.7); ANION GAP 11 (5-15); ASPARTATE AMINO TRANSFERASE 26 U/L (5-40); CALCIUM 9.5 mg/dL (8.6-10.2); CARBON DIOXIDE 26 mEQ/L (20-30); CHLORIDE 102 mEQ/L (98-107); CREATININE 0.6 mg/dL (0.7-1.2); HEMOLYSIS 11; MAGNESIUM 1.8 mg/dL (1.7-2.5); PHOSPHORUS 3.6 mg/dL (2.5-4.8); POTASSIUM 4.2 mEQ/L (3.4-4.9); SODIUM 139 mEQ/L (135-145); TOTAL PROTEIN 6.1 g/dL (6.6-8.7)
[2017-04-27] MEDS ORDERED: Cefepime HCl 1 GM in D5W 55 ML IVPB SCH (06:00)
[2017-04-27] MEDS: NovoLOG Insulin Flexpen SUBQ SCH ×3 (06:25→17:07)
[2017-04-27] MEDS: Heparin 5000 units/ml inj SUBQ SCH ×2 (08:22→20:53)
--- NOTE | 2017-04-27 08:37 | Diagnostic Imaging Report ---
Indications: DYSPNEA Technique: Portable AP chest Findings: Comparison: 04/26/17 Endotracheal tube remains in place. Cardiac silhouette remains normal in size. Linear and hazy opacities persist in right lung base. No new abnormality identified. IMPRESSION: No change from one day prior
[2017-04-27 08:57] LABS: ABG BASE EXCESS 2.5; ABG PCO2 38.9 mmHg (35.0-45.0)
[2017-04-27] MEDS ORDERED: Heparin 5000 units/ml inj SUBQ SCH (09:00)
--- NOTE | 2017-04-27 09:12 | General Progress Note ---
Assessment/Plan Status: stable - from renal stand, unchanged - from resp stand Assessment/Plan Status; Renal failure- High K , resolved Sever Anemia - Transfused- Primary Impression: Respiratory failure Pneumonia Sepsis Status post stroke Plan; Hydrate- Antibiotics Avoid nephrotoxics Transfused one unit 04/24 monitor renal parameters Subjective ROS Limited/Unobtainable: Yes Allergies: Coded Allergies: No Known Allergies (Unverified , 04/23/17) Objective Last 24 Hour Vital Signs Date Time Temp Pulse Resp B/P Pulse Ox O2 Delivery O2 Flow Rate FiO2 04/27/17 08:00 98.1 71 20 152/66 100 Mechanical Ventilator 35 04/27/17 08:00 80 04/27/17 07:57 35 04/27/17 07:09 71 28 35 04/27/17 07:00 70 21 172/72 100 Mechanical Ventilator 35 04/27/17 06:23 177/78 04/27/17 06:00 65 22 188/77 100 Mechanical Ventilator 35 04/27/17 05:00 64 22 175/74 100 Mechanical Ventilator 35 04/27/17 04:35 69 23 35 04/27/17 04:00 35 04/27/17 04:00 67 04/27/17 04:00 63 17 181/75 100 Mechanical Ventilator 35 04/27/17 03:00 64 22 162/69 100 Mechanical Ventilator 35 04/27/17 03:00 68 27 35 04/27/17 02:00 63 23 159/67 100 Mechanical Ventilator 35 04/27/17 01:00 63 21 138/62 100 Mechanical Ventilator 35 04/27/17 00:49 67 24 35 04/27/17 00:00 97.7 65 21 136/61 100 Mechanical Ventilator 35 04/27/17 00:00 35 04/27/17 00:00 63 04/26/17 23:15 67 25 35 04/26/17 23:00 68 23 158/71 100 Mechanical Ventilator 35 04/26/17 22:00 63 20 146/66 100 Mechanical Ventilator 35 04/26/17 21:30 60 18 35 04/26/17 21:00 61 20 152/75 100 Mechanical Ventilator 35 04/26/17 20:00 60 04/26/17 20:00 35 04/26/17 20:00 97.6 64 20 163/74 100 Mechanical Ventilator 35 04/26/17 20:00 150/90 04/26/17 19:30 70 24 35 04/26/17 19:00 72 24 150/77 100 Mechanical Ventilator 35 04/26/17 18:58 98.5 04/26/17 18:00 74 23 175/74 100 Mechanical Ventilator 35 04/26/17 17:00 71 22 158/73 100 Mechanical Ventilator 35 04/26/17 16:56 84 26 35 04/26/17 16:00 98.5 82 26 152/72 99 Mechanical Ventilator 35 04/26/17 16:00 35 04/26/17 16:00 82 04/26/17 15:18 85 35 35 04/26/17 15:00 80 21 160/66 99 Mechanical Ventilator 35 04/26/17 14:00 78 21 161/65 100 Mechanical Ventilator 35 04/26/17 13:53 175/67 04/26/17 13:00 65 21 175/67 100 Mechanical Ventilator 35 04/26/17 12:56 61 19 35 04/26/17 12:00 35 04/26/17 12:00 67 04/26/17 12:00 98.7 65 21 164/76 100 Mechanical Ventilator 35 04/26/17 11:03 74 24 35 04/26/17 11:00 69 22 146/121 100 Mechanical Ventilator 35 04/26/17 10:00 65 24 162/78 100 Mechanical Ventilator 35 Intake and Output 04/26/17 04/27/17 19:00 07:00 Intake Total 1235.0 ml 1714.8 ml Output Total 645 ml 1200 ml Balance 590.0 ml 514.8 ml Intake Free Water 50 ml IV Total 575.0 ml 444.8 ml Tube Feeding 560 ml 770 ml Other 50 ml 500 ml Output Urine Total 645 ml 700 ml Other 500 ml Laboratory Tests 04/27/17 04:05: White Blood Count 10.3, Red Blood Count 2.77L, Hemoglobin 8.7L, Hematocrit 27.4L , Mean Corpuscular Volume 99, Mean Corpuscular Hemoglobin 31.3H, Mean Corpuscular Hemoglobin Concent 31.6L, Red Cell Distribution Width 15.5H, Platelet Count 467H, Mean Platelet Volume 5.9L, Neutrophils (%) (Auto) 61.2, Lymphocytes (%) (Auto) 19.7L, Monocytes (%) (Auto) 7.0, Eosinophils (%) (Auto) 11.2H, Basophils (%) (Auto) 1.0, Sodium Level 139, Potassium Level 4.2, Chloride Level 102, Carbon Dioxide Level 26, Anion Gap 11, Blood Urea Nitrogen 13, Creatinine 0.6L, Estimat Glomerular Filtration Rate , Glucose Level 158H, Calcium Level 9.5, Phosphorus Level 3.6, Magnesium Level 1.8, Total Bilirubin < 0.2, Aspartate Amino Transf (AST/SGOT) 26, Alanine Aminotransferase (ALT/SGPT) 29, Alkaline Phosphatase 122, Total Protein 6.1L, Albumin 2.3L, Globulin 3.8, Albumin/Globulin Ratio 0.6L 04/27/17 08:47: Arterial Blood pH 7.450, Arterial Blood Partial Pressure CO2 38.9, Arterial Blood Partial Pressure O2 77.0, Arterial Blood HCO3 26.6H, Arterial Blood Oxygen Saturation 95.0, Arterial Blood Base Excess 2.5, Angelo Test Height (Feet): 6 Height (Inches): 1.00 Weight (Pounds): 200 General Appearance: no apparent distress Cardiovascular: normal rate Respiratory/Chest: decreased breath sounds Objective no change SANDOVAL JULES Apr 27, 2017 09:12
--- NOTE | 2017-04-27 09:45 | Pulmonolgy Critical Care Note ---
Critical Care - Asmt/Plan Problems: (1) Acute respiratory failure (2) Acute encephalopathy (3) Anemia (4) Pneumonia (5) ATN (acute tubular necrosis) (6) Sepsis (7) Prostate cancer (8) Diabetes mellitus Respiratory: monitor respiratory rate, adjust FIO2, CXR Cardiac: continue to monitor HR/BP Renal: F/U I&O, keep IV fluid, increase IV fluid, check electrolytes Infectious Disease: check cultures, continue antibiotics Gastrointestinal: continue feedings/current rate Endocrine: monitor blood sugar, check HgA1C, continue sliding scale insulin Hematologic: monitor H/H, transfuse if hgb<8.5 Neurologic: PRN Ativan, keep patient comfortable Affect: PRN ativan Prophylaxis: Heparin Disposition: keep in ICU Notes Reviewed: zinc plater, cardio Discussed with: nurses, wrapper casermanager risk management - Objective Last 24 Hour Vital Signs Date Time Temp Pulse Resp B/P Pulse Ox O2 Delivery O2 Flow Rate FiO2 04/27/17 09:00 69 21 158/81 100 Mechanical Ventilator 35 04/27/17 08:43 69 27 35 04/27/17 08:00 98.1 71 20 152/66 100 Mechanical Ventilator 35 04/27/17 08:00 80 04/27/17 07:57 35 04/27/17 07:09 71 28 35 04/27/17 07:00 70 21 172/72 100 Mechanical Ventilator 35 04/27/17 06:23 177/78 04/27/17 06:00 65 22 188/77 100 Mechanical Ventilator 35 04/27/17 05:00 64 22 175/74 100 Mechanical Ventilator 35 04/27/17 04:35 69 23 35 04/27/17 04:00 35 04/27/17 04:00 67 04/27/17 04:00 63 17 181/75 100 Mechanical Ventilator 35 04/27/17 03:00 64 22 162/69 100 Mechanical Ventilator 35 04/27/17 03:00 68 27 35 04/27/17 02:00 63 23 159/67 100 Mechanical Ventilator 35 04/27/17 01:00 63 21 138/62 100 Mechanical Ventilator 35 04/27/17 00:49 67 24 35 04/27/17 00:00 97.7 65 21 136/61 100 Mechanical Ventilator 35 04/27/17 00:00 35 04/27/17 00:00 63 04/26/17 23:15 67 25 35 04/26/17 23:00 68 23 158/71 100 Mechanical Ventilator 35 04/26/17 22:00 63 20 146/66 100 Mechanical Ventilator 35 04/26/17 21:30 60 18 35 04/26/17 21:00 61 20 152/75 100 Mechanical Ventilator 35 04/26/17 20:00 60 04/26/17 20:00 35 04/26/17 20:00 97.6 64 20 163/74 100 Mechanical Ventilator 35 04/26/17 20:00 150/90 04/26/17 19:30 70 24 35 04/26/17 19:00 72 24 150/77 100 Mechanical Ventilator 35 04/26/17 18:58 98.5 04/26/17 18:00 74 23 175/74 100 Mechanical Ventilator 35 04/26/17 17:00 71 22 158/73 100 Mechanical Ventilator 35 04/26/17 16:56 84 26 35 04/26/17 16:00 98.5 82 26 152/72 99 Mechanical Ventilator 35 04/26/17 16:00 35 04/26/17 16:00 82 04/26/17 15:18 85 35 35 04/26/17 15:00 80 21 160/66 99 Mechanical Ventilator 35 04/26/17 14:00 78 21 161/65 100 Mechanical Ventilator 35 04/26/17 13:53 175/67 04/26/17 13:00 65 21 175/67 100 Mechanical Ventilator 35 04/26/17 12:56 61 19 35 04/26/17 12:00 35 04/26/17 12:00 67 04/26/17 12:00 98.7 65 21 164/76 100 Mechanical Ventilator 35 04/26/17 11:03 74 24 35 04/26/17 11:00 69 22 146/121 100 Mechanical Ventilator 35 04/26/17 10:00 65 24 162/78 100 Mechanical Ventilator 35 Status: awake Condition: critical HEENT: atraumatic, normocephalic Neck: full ROM Lungs: clear Heart: HR/BP stable, HR/BP unstable Abdomen: soft, non-tender Extremities: no C/C/E, edema Micro: Microbiology Date/Time Source Procedure Growth Status 04/25/17 05:49 Stool Clostridium difficile Toxin Assay - Final Complete 04/25/17 04:00 Urine,Clean Catch Urine Culture - Preliminary NO GROWTH AFTER 24 HOURS Resulted Accucheck: 147 Critical Care - Subjective ROS Limited/Unobtainable: Yes ICU Day: 4 Intubation Day: 4 Condition: critical EKG Rhythm: Sinus Rhythm FI02: 35 Vent Support Breath Rate: 16 Vent Support Mode: AC Vent Tidal Volume: 500 Sputum Amount: Small PEEP: 5.0 PIP: 25 Tube Feeding Amount: 70 I&O: Intake and Output 04/26/17 04/27/17 19:00 07:00 Intake Total 1235.0 ml 1714.8 ml Output Total 645 ml 1200 ml Balance 590.0 ml 514.8 ml Intake Free Water 50 ml IV Total 575.0 ml 444.8 ml Tube Feeding 560 ml 770 ml Other 50 ml 500 ml Output Urine Total 645 ml 700 ml Other 500 ml CXR: no change ET-Tube: 8.0 ET Position: 26 Labs: Laboratory Tests Test 04/27/17 04:05 04/27/17 08:47 White Blood Count 10.3 K/UL (4.8-10.8) Red Blood Count 2.77 M/UL (4.70-6.10) L Hemoglobin 8.7 G/DL (14.2-18.0) L Hematocrit 27.4 % (42.0-52.0) L Mean Corpuscular Volume 99 FL (80-99) Mean Corpuscular Hemoglobin 31.3 PG (27.0-31.0) H Mean Corpuscular Hemoglobin Concent 31.6 G/DL (32.0-36.0) L Red Cell Distribution Width 15.5 % (11.6-14.8) H Platelet Count 467 K/UL (150-450) H Mean Platelet Volume 5.9 FL (6.5-10.1) L Neutrophils (%) (Auto) 61.2 % (45.0-75.0) Lymphocytes (%) (Auto) 19.7 % (20.0-45.0) L Monocytes (%) (Auto) 7.0 % (1.0-10.0) Eosinophils (%) (Auto) 11.2 % (0.0-3.0) H Basophils (%) (Auto) 1.0 % (0.0-2.0) Sodium Level 139 mEQ/L (135-145) Potassium Level 4.2 mEQ/L (3.4-4.9) Chloride Level 102 mEQ/L (98-107) Carbon Dioxide Level 26 mEQ/L (20-30) Anion Gap 11 (5-15) Blood Urea Nitrogen 13 mg/dL (7-23) Creatinine 0.6 mg/dL (0.7-1.2) L Estimat Glomerular Filtration Rate mL/min (>60) Glucose Level 158 mg/dL (74-106) H Calcium Level 9.5 mg/dL (8.6-10.2) Phosphorus Level 3.6 mg/dL (2.5-4.8) Magnesium Level 1.8 mg/dL (1.7-2.5) Total Bilirubin < 0.2 mg/dL (0.0-1.2) Aspartate Amino Transf (AST/SGOT) 26 U/L (5-40) Alanine Aminotransferase (ALT/SGPT) 29 U/L (3-41) Alkaline Phosphatase 122 U/L (40-129) Total Protein 6.1 g/dL (6.6-8.7) L Albumin 2.3 g/dL (3.5-5.2) L Globulin 3.8 g/dL Albumin/Globulin Ratio 0.6 (1.0-2.7) L Arterial Blood pH 7.450 (7.350-7.450) Arterial Blood Partial Pressure CO2 38.9 mmHg (35.0-45.0) Arterial Blood Partial Pressure O2 77.0 mmHg (75.0-100.0) Arterial Blood HCO3 26.6 mmol/L (22.0-26.0) H Arterial Blood Oxygen Saturation 95.0 % (92.0-98.0) Arterial Blood Base Excess 2.5 Angelo Test MARGARITA ROBLES Apr 27, 2017 09:45
[2017-04-27] MEDS: Vancomycin 1.25 GM in D5W 275 ML IVPB SCH ×2 (10:55→22:58)
--- NOTE | 2017-04-27 14:36 | GI Progress Note ---
Assessment/Plan Problems: (1) Hypoalbuminemia ICD Codes: E88.09 - Other disorders of plasma-protein metabolism, not elsewhere classified SNOMED: 407513656 (2) Diarrhea ICD Codes: R19.7 - Diarrhea, unspecified SNOMED: 74465001 (3) Iron deficiency ICD Codes: E61.1 - Iron deficiency SNOMED: 75475036 (4) Occult blood in stools ICD Codes: R19.5 - Other fecal abnormalities SNOMED: 14138258, 978122151 (5) Anemia ICD Codes: D64.9 - Anemia, unspecified SNOMED: 611650749 Status: stable, unchanged Status Narrative Discussed with Dr. Thornton. Assessment/Plan cdiff negative occult blood stool positive GT present iron deficient >> venofer gastric lavage >> unremarkable, will schedule for colonoscopy tomorrow. - NPO + golytely prep - NPO @ MN. - hold all blood thinners Imodium prn if diarrhea persists ppi GTFs per dietary fu labs Subjective Subjective limited Objective Last 24 Hour Vital Signs Date Time Temp Pulse Resp B/P Pulse Ox O2 Delivery O2 Flow Rate FiO2 04/27/17 14:00 76 19 174/73 100 Mechanical Ventilator 35 04/27/17 13:00 86 20 168/76 100 Mechanical Ventilator 35 04/27/17 12:46 87 29 35 04/27/17 12:00 98.4 84 19 157/69 100 Mechanical Ventilator 35 04/27/17 12:00 70 04/27/17 12:00 35 04/27/17 11:40 177/71 04/27/17 11:24 69 21 35 04/27/17 11:00 67 20 170/71 100 Mechanical Ventilator 35 04/27/17 10:00 68 20 168/70 100 Mechanical Ventilator 35 04/27/17 09:00 69 21 158/81 100 Mechanical Ventilator 35 04/27/17 08:43 69 27 35 04/27/17 08:00 98.1 71 20 152/66 100 Mechanical Ventilator 35 04/27/17 08:00 80 04/27/17 07:57 35 04/27/17 07:09 71 28 35 04/27/17 07:00 70 21 172/72 100 Mechanical Ventilator 35 04/27/17 06:23 177/78 04/27/17 06:00 65 22 188/77 100 Mechanical Ventilator 35 04/27/17 05:00 64 22 175/74 100 Mechanical Ventilator 35 04/27/17 04:35 69 23 35 04/27/17 04:00 35 04/27/17 04:00 67 04/27/17 04:00 63 17 181/75 100 Mechanical Ventilator 35 04/27/17 03:00 64 22 162/69 100 Mechanical Ventilator 35 04/27/17 03:00 68 27 35 04/27/17 02:00 63 23 159/67 100 Mechanical Ventilator 35 04/27/17 01:00 63 21 138/62 100 Mechanical Ventilator 35 04/27/17 00:49 67 24 35 04/27/17 00:00 97.7 65 21 136/61 100 Mechanical Ventilator 35 04/27/17 00:00 35 04/27/17 00:00 63 04/26/17 23:15 67 25 35 04/26/17 23:00 68 23 158/71 100 Mechanical Ventilator 35 04/26/17 22:00 63 20 146/66 100 Mechanical Ventilator 35 04/26/17 21:30 60 18 35 04/26/17 21:00 61 20 152/75 100 Mechanical Ventilator 35 04/26/17 20:00 60 04/26/17 20:00 35 04/26/17 20:00 97.6 64 20 163/74 100 Mechanical Ventilator 35 04/26/17 20:00 150/90 04/26/17 19:30 70 24 35 04/26/17 19:00 72 24 150/77 100 Mechanical Ventilator 35 04/26/17 18:58 98.5 04/26/17 18:00 74 23 175/74 100 Mechanical Ventilator 35 04/26/17 17:00 71 22 158/73 100 Mechanical Ventilator 35 04/26/17 16:56 84 26 35 04/26/17 16:00 98.5 82 26 152/72 99 Mechanical Ventilator 35 04/26/17 16:00 35 04/26/17 16:00 82 04/26/17 15:18 85 35 35 04/26/17 15:00 80 21 160/66 99 Mechanical Ventilator 35 Intake and Output 04/26/17 04/27/17 19:00 07:00 Intake Total 1235.0 ml 1714.8 ml Output Total 645 ml 1200 ml Balance 590.0 ml 514.8 ml Intake Free Water 50 ml IV Total 575.0 ml 444.8 ml Tube Feeding 560 ml 770 ml Other 50 ml 500 ml Output Urine Total 645 ml 700 ml Other 500 ml Laboratory Tests Test 04/27/17 04:05 04/27/17 08:47 White Blood Count 10.3 K/UL (4.8-10.8) Red Blood Count 2.77 M/UL (4.70-6.10) L Hemoglobin 8.7 G/DL (14.2-18.0) L Hematocrit 27.4 % (42.0-52.0) L Mean Corpuscular Volume 99 FL (80-99) Mean Corpuscular Hemoglobin 31.3 PG (27.0-31.0) H Mean Corpuscular Hemoglobin Concent 31.6 G/DL (32.0-36.0) L Red Cell Distribution Width 15.5 % (11.6-14.8) H Platelet Count 467 K/UL (150-450) H Mean Platelet Volume 5.9 FL (6.5-10.1) L Neutrophils (%) (Auto) 61.2 % (45.0-75.0) Lymphocytes (%) (Auto) 19.7 % (20.0-45.0) L Monocytes (%) (Auto) 7.0 % (1.0-10.0) Eosinophils (%) (Auto) 11.2 % (0.0-3.0) H Basophils (%) (Auto) 1.0 % (0.0-2.0) Sodium Level 139 mEQ/L (135-145) Potassium Level 4.2 mEQ/L (3.4-4.9) Chloride Level 102 mEQ/L (98-107) Carbon Dioxide Level 26 mEQ/L (20-30) Anion Gap 11 (5-15) Blood Urea Nitrogen 13 mg/dL (7-23) Creatinine 0.6 mg/dL (0.7-1.2) L Estimat Glomerular Filtration Rate mL/min (>60) Glucose Level 158 mg/dL (74-106) H Calcium Level 9.5 mg/dL (8.6-10.2) Phosphorus Level 3.6 mg/dL (2.5-4.8) Magnesium Level 1.8 mg/dL (1.7-2.5) Total Bilirubin < 0.2 mg/dL (0.0-1.2) Aspartate Amino Transf (AST/SGOT) 26 U/L (5-40) Alanine Aminotransferase (ALT/SGPT) 29 U/L (3-41) Alkaline Phosphatase 122 U/L (40-129) Total Protein 6.1 g/dL (6.6-8.7) L Albumin 2.3 g/dL (3.5-5.2) L Globulin 3.8 g/dL Albumin/Globulin Ratio 0.6 (1.0-2.7) L Arterial Blood pH 7.450 (7.350-7.450) Arterial Blood Partial Pressure CO2 38.9 mmHg (35.0-45.0) Arterial Blood Partial Pressure O2 77.0 mmHg (75.0-100.0) Arterial Blood HCO3 26.6 mmol/L (22.0-26.0) H Arterial Blood Oxygen Saturation 95.0 % (92.0-98.0) Arterial Blood Base Excess 2.5 Angelo Test Height (Feet): 6 Height (Inches): 1.00 Weight (Pounds): 200 General Appearance: no apparent distress, alert Cardiovascular: normal rate Respiratory/Chest: no respiratory distress, other - mech vent Abdominal Exam: normal bowel sounds, non tender, soft, GT site - c/d/i Fara Barfield N.P. Apr 27, 2017 14:36
[2017-04-27] MEDS ORDERED: NS 275ml ONE (15:29)
[2017-04-27] MEDS ORDERED: Tubing IV Secondary IV ONE (15:29)
[2017-04-27] MEDS ORDERED: Nulytely 4L ORAL ONE (16:00)
--- NOTE | 2017-04-27 19:40 | Infectious Diseases Prog Note ---
Assessment/Plan Assessment/Plan ASSESSMENT: 71 y/o male with: // Probable HCAP - SCx MRSA - CXR 04/27: Linear and hazy opacities persist in right lung base. // Negative C.difficile 04/25 // Severe sepsis - resolved lactic acidosis // Leukocytosis - resolved // Low grade fever x1 - resolved // Acute VDRF - intubated 04/24 // FOBT(+) anemia - GI following, plan colonoscopy // Acute renal insufficiency - resolved // DM2 // CVA // Dysphagia SP PEG // SNF resident // MRSA, VRE colonized // NKDA // DNR PLAN: - continue IV vancomycin d# 4 / . DC invanz, amikacin d# 4 - f/u cultures - colonoscopy per GI - f/u findings - monitor CBC, temperatures - monitor BMP - monitor CXR - vent support, wean as tolerated Subjective Allergies: Coded Allergies: No Known Allergies (Unverified , 04/23/17) Subjective pt unable to provide any information low grade fever x1, leukocytosis resolved remains on vent colonoscopy planned for tomorrow Objective Vital Signs Last 24 Hour Vital Signs Date Time Temp Pulse Resp B/P Pulse Ox O2 Delivery O2 Flow Rate FiO2 04/27/17 19:30 99 29 35 04/27/17 19:00 99 21 172/77 100 Mechanical Ventilator 35 04/27/17 18:00 94 20 167/82 100 Mechanical Ventilator 35 04/27/17 17:07 177/80 04/27/17 17:00 98.1 76 27 177/80 100 Mechanical Ventilator 35 04/27/17 16:38 66 21 35 04/27/17 16:00 35 04/27/17 16:00 63 19 165/57 100 Mechanical Ventilator 35 04/27/17 15:40 68 04/27/17 15:00 71 20 171/72 100 Mechanical Ventilator 35 04/27/17 14:37 76 19 35 04/27/17 14:00 76 19 174/73 100 Mechanical Ventilator 35 04/27/17 13:00 86 20 168/76 100 Mechanical Ventilator 35 04/27/17 12:46 87 29 35 04/27/17 12:00 98.4 84 19 157/69 100 Mechanical Ventilator 35 04/27/17 12:00 70 04/27/17 12:00 35 04/27/17 11:40 177/71 04/27/17 11:24 69 21 35 04/27/17 11:00 67 20 170/71 100 Mechanical Ventilator 35 04/27/17 10:00 68 20 168/70 100 Mechanical Ventilator 35 04/27/17 09:00 69 21 158/81 100 Mechanical Ventilator 35 04/27/17 08:43 69 27 35 04/27/17 08:00 98.1 71 20 152/66 100 Mechanical Ventilator 35 04/27/17 08:00 80 04/27/17 07:57 35 04/27/17 07:09 71 28 35 04/27/17 07:00 70 21 172/72 100 Mechanical Ventilator 35 04/27/17 06:23 177/78 04/27/17 06:00 65 22 188/77 100 Mechanical Ventilator 35 04/27/17 05:00 64 22 175/74 100 Mechanical Ventilator 35 04/27/17 04:35 69 23 35 04/27/17 04:00 35 04/27/17 04:00 67 04/27/17 04:00 63 17 181/75 100 Mechanical Ventilator 35 04/27/17 03:00 64 22 162/69 100 Mechanical Ventilator 35 04/27/17 03:00 68 27 35 04/27/17 02:00 63 23 159/67 100 Mechanical Ventilator 35 04/27/17 01:00 63 21 138/62 100 Mechanical Ventilator 35 04/27/17 00:49 67 24 35 04/27/17 00:00 97.7 65 21 136/61 100 Mechanical Ventilator 35 04/27/17 00:00 35 04/27/17 00:00 63 04/26/17 23:15 67 25 35 04/26/17 23:00 68 23 158/71 100 Mechanical Ventilator 35 04/26/17 22:00 63 20 146/66 100 Mechanical Ventilator 35 04/26/17 21:30 60 18 35 04/26/17 21:00 61 20 152/75 100 Mechanical Ventilator 35 04/26/17 20:00 60 04/26/17 20:00 35 04/26/17 20:00 97.6 64 20 163/74 100 Mechanical Ventilator 35 04/26/17 20:00 150/90 Height (Feet): 6 Height (Inches): 1.00 Weight (Pounds): 200 General Appearance: other - intubated Respiratory/Chest: decreased breath sounds Cardiovascular: normal rate, regular rhythm Abdomen: normal bowel sounds, soft, non tender, non distended Microbiology Date/Time Source Procedure Growth Status 04/25/17 05:49 Stool Clostridium difficile Toxin Assay - Final Complete 04/25/17 04:00 Urine,Clean Catch Urine Culture - Preliminary NO GROWTH AFTER 24 HOURS Resulted Laboratory Tests Test 04/27/17 04:05 04/27/17 08:47 White Blood Count 10.3 K/UL (4.8-10.8) Red Blood Count 2.77 M/UL (4.70-6.10) L Hemoglobin 8.7 G/DL (14.2-18.0) L Hematocrit 27.4 % (42.0-52.0) L Mean Corpuscular Volume 99 FL (80-99) Mean Corpuscular Hemoglobin 31.3 PG (27.0-31.0) H Mean Corpuscular Hemoglobin Concent 31.6 G/DL (32.0-36.0) L Red Cell Distribution Width 15.5 % (11.6-14.8) H Platelet Count 467 K/UL (150-450) H Mean Platelet Volume 5.9 FL (6.5-10.1) L Neutrophils (%) (Auto) 61.2 % (45.0-75.0) Lymphocytes (%) (Auto) 19.7 % (20.0-45.0) L Monocytes (%) (Auto) 7.0 % (1.0-10.0) Eosinophils (%) (Auto) 11.2 % (0.0-3.0) H Basophils (%) (Auto) 1.0 % (0.0-2.0) Sodium Level 139 mEQ/L (135-145) Potassium Level 4.2 mEQ/L (3.4-4.9) Chloride Level 102 mEQ/L (98-107) Carbon Dioxide Level 26 mEQ/L (20-30) Anion Gap 11 (5-15) Blood Urea Nitrogen 13 mg/dL (7-23) Creatinine 0.6 mg/dL (0.7-1.2) L Estimat Glomerular Filtration Rate mL/min (>60) Glucose Level 158 mg/dL (74-106) H Calcium Level 9.5 mg/dL (8.6-10.2) Phosphorus Level 3.6 mg/dL (2.5-4.8) Magnesium Level 1.8 mg/dL (1.7-2.5) Total Bilirubin < 0.2 mg/dL (0.0-1.2) Aspartate Amino Transf (AST/SGOT) 26 U/L (5-40) Alanine Aminotransferase (ALT/SGPT) 29 U/L (3-41) Alkaline Phosphatase 122 U/L (40-129) Total Protein 6.1 g/dL (6.6-8.7) L Albumin 2.3 g/dL (3.5-5.2) L Globulin 3.8 g/dL Albumin/Globulin Ratio 0.6 (1.0-2.7) L Arterial Blood pH 7.450 (7.350-7.450) Arterial Blood Partial Pressure CO2 38.9 mmHg (35.0-45.0) Arterial Blood Partial Pressure O2 77.0 mmHg (75.0-100.0) Arterial Blood HCO3 26.6 mmol/L (22.0-26.0) H Arterial Blood Oxygen Saturation 95.0 % (92.0-98.0) Arterial Blood Base Excess 2.5 Angelo Test Current Medications Medications (Trade) Dose Ordered Sig/Guzman Route PRN Reason Start Time Stop Time Status Last Admin Dose Admin Acetaminophen (Tylenol) 650 mg Q4H PRN ORAL fever 04/23/17 19:15 05/23/17 19:14 04/23/17 21:39 Albuterol/ Ipratropium 3 ml 3 ml Q4H PRN HHN Shortness of Breath 04/23/17 19:15 04/28/17 19:14 Amikacin Protocol (Amikacin pharmacy to dose) 1 ea DAILY PRN MISC PRN RX PROTOCOL 04/23/17 20:00 05/23/17 19:59 Amikacin Sulfate 1200 mg/Sodium Chloride 114.8 ml @ 114.8 mls/ hr Q24H IV 04/23/17 22:00 04/30/17 21:59 04/26/17 21:44 Dextrose (Dextrose 50%) STAT PRN IV Hypoglycemia 04/24/17 12:00 05/24/17 11:59 Ertapenem 1 gm/ Sodium Chloride 55 ml @ 110 mls/hr Q24H IV 04/23/17 20:30 04/30/17 23:59 04/26/17 20:12 Heparin Sodium (Porcine) (Heparin 5000 units/ml) 5,000 units EVERY 12 HOURS SUBQ 04/23/17 21:00 05/23/17 20:59 04/27/17 08:22 Hydralazine HCl (Apresoline) 10 mg Q4H PRN IV SBP>160 04/26/17 13:45 05/26/17 13:44 04/27/17 17:07 Insulin Aspart (NovoLOG) Q6HR SUBQ 04/24/17 18:00 05/24/17 17:59 04/27/17 17:07 Lansoprazole (Prevacid) 30 mg DAILY GT 04/25/17 12:00 05/25/17 11:59 04/27/17 08:21 Lorazepam 2 mg 2 mg Q2H PRN IV For Anxiety 04/23/17 19:15 04/30/17 19:14 04/27/17 08:21 Morphine Sulfate (Morphine Sulfate) 4 mg Q4H PRN IVP Severe Pain (Pain Scale 7-10) 04/23/17 19:15 04/30/17 19:14 04/26/17 18:28 Norepinephrine Bitartrate/ Dextrose (Levophed/D5W) 254 ml @ 0 mls/hr Q24H IV 04/23/17 20:00 05/23/17 19:59 Ondansetron HCl (Zofran) 4 mg Q6H PRN IVP Nausea & Vomiting 04/23/17 19:15 05/23/17 19:14 Polyethylene Glycol (Miralax) 17 gm DAILYPRN PRN ORAL Constipation 04/23/17 19:15 05/23/17 19:14 Vancomycin HCl (Vanco rx to dose) 1 ea DAILY PRN MISC PRN RX PROTOCOL 04/23/17 20:00 05/23/17 19:59 Vancomycin HCl/ Dextrose (Vancomycin/D5W) 275 ml @ 183.3 mls/ hr Q12H IVPB 04/23/17 23:00 04/30/17 23:59 04/27/17 10:55 GLORIA HOLGUIN Apr 27, 2017 19:40
[2017-04-27] MEDS: Ertapenem 1 GM in NS 55 ML IV SCH (20:51)
[2017-04-27] MEDS: Amikacin 1,200 MG in NS 110 ML IV SCH (22:06)
[2017-04-28] VITALS (19 sets, daily range): BP systolic 134–179; BP diastolic 67–85
[2017-04-28] MEDS: NovoLOG Insulin Flexpen SUBQ SCH ×3 (00:10→11:37)
[2017-04-28 05:46] LABS: BASOPHILS % (AUTO) 0.7 % (0.0-2.0); EOSINOPHILS % (AUTO) 5.1 % (0.0-3.0); LYMPHOCYTES % (AUTO) 16.3 % (20.0-45.0); MEAN CORPUSCULAR HEMOGLOBIN 31.9 PG (27.0-31.0); MEAN CORPUSCULAR HGB CONC 32.6 G/DL (32.0-36.0); MEAN CORPUSCULAR VOLUME 98 FL (80-99); MEAN PLATELET VOLUME 5.7 FL (6.5-10.1); MONOCYTES % (AUTO) 7.6 % (1.0-10.0); NEUTROPHILS % (AUTO) 70.3 % (45.0-75.0); PLATELET COUNT 469 K/UL (150-450); RED BLOOD COUNT 2.81 M/UL (4.70-6.10); RED CELL DISTRIBUTION WIDTH 14.9 % (11.6-14.8); WHITE BLOOD COUNT 11.8 K/UL (4.8-10.8)
[2017-04-28 05:52] LABS: PROTHROMBIN TIME 10.2 SEC (9.30-11.50)
[2017-04-28 06:19] LABS: ALANINE AMINOTRANSFERASE 36 U/L (3-41); ALBUMIN/GLOBULIN RATIO 0.7 (1.0-2.7); ANION GAP 12 (5-15); ASPARTATE AMINO TRANSFERASE 28 U/L (5-40); CALCIUM 9.5 mg/dL (8.6-10.2); CARBON DIOXIDE 27 mEQ/L (20-30); CHLORIDE 100 mEQ/L (98-107); CREATININE 0.6 mg/dL (0.7-1.2); HEMOLYSIS 8; PHOSPHORUS 3.4 mg/dL (2.5-4.8); SODIUM 139 mEQ/L (135-145); TOTAL PROTEIN 6.3 g/dL (6.6-8.7)
--- NOTE | 2017-04-28 06:43 | Anethesia Preoperative Eval ---
Anesthesia Pre-op PMH/ROS General Date of Evaluation: Apr 28, 2017 Time of Evaluation: 06:43 Anesthesiologist: cheko ASA Score: ASA 3 Mallampati Score Class I : Soft palate, uvula, fauces, pillars visible Class II: Soft palate, uvula, fauces visible Class III: Soft palate, base of uvula visible Class IV: Only hard plate visible Surgeon: jennie Diagnosis: gi bleed, anemia Surgical Procedure: colonoscopy Anesthesia History: none Social History: smoking - nonsmoker Family History: no anesthesia problems Allergies: Coded Allergies: No Known Allergies (Unverified , 04/23/17) Medications: see eMAR Past Medical History Cardiovascular: Reports: HTN Pulmonary: Reports: other - vent dependent Neurologic/Psychiatric: Reports: CVA Endocrine: Reports: DM Hematology/Immune: Reports: other - cancer Anesthesia Pre-op Phys. Exam Physician Exam Last Vital Signs Date Time Temp Pulse Resp B/P Pulse Ox O2 Delivery O2 Flow Rate FiO2 04/28/17 13:01 74 18 35 04/28/17 11:00 170/73 100 Mechanical Ventilator 04/28/17 08:00 98.4 04/23/17 19:29 15.0 Last Vital Signs Date Time Temp Pulse Resp B/P Pulse Ox O2 Delivery O2 Flow Rate FiO2 04/28/17 06:00 78 20 156/73 100 Mechanical Ventilator 35 04/28/17 04:00 98.0 04/23/17 19:29 15.0 Constitutional: NAD Neurologic: CN 2-12 intact Cardiovascular: RRR, other - 5 Respiratory: other - vent dependent [id number] Gastrointestinal: S/NT/ND Airway Exam MO: limited - intubated TMD: intubated ROM: limited - intubated Teeth: intact Anesthesia Pre-op A/P Labs Hematology Test 04/28/17 04:00 White Blood Count 11.8 K/UL (4.8-10.8) H Red Blood Count 2.81 M/UL (4.70-6.10) L Hemoglobin 9.0 G/DL (14.2-18.0) L Hematocrit 27.5 % (42.0-52.0) L Mean Corpuscular Volume 98 FL (80-99) Mean Corpuscular Hemoglobin 31.9 PG (27.0-31.0) H Mean Corpuscular Hemoglobin Concent 32.6 G/DL (32.0-36.0) Red Cell Distribution Width 14.9 % (11.6-14.8) H Platelet Count 469 K/UL (150-450) H Mean Platelet Volume 5.7 FL (6.5-10.1) L Neutrophils (%) (Auto) 70.3 % (45.0-75.0) Lymphocytes (%) (Auto) 16.3 % (20.0-45.0) L Monocytes (%) (Auto) 7.6 % (1.0-10.0) Eosinophils (%) (Auto) 5.1 % (0.0-3.0) H Basophils (%) (Auto) 0.7 % (0.0-2.0) Coagulation Test 04/28/17 04:00 Prothrombin Time 10.2 SEC (9.30-11.50) Prothromb Time International Ratio 1.0 (0.9-1.1) Activated Partial Thromboplast Time 26 SEC (23-33) Chemistry Test 04/28/17 04:00 Sodium Level 139 mEQ/L (135-145) Potassium Level 4.0 mEQ/L (3.4-4.9) Chloride Level 100 mEQ/L (98-107) Carbon Dioxide Level 27 mEQ/L (20-30) Anion Gap 12 (5-15) Blood Urea Nitrogen 9 mg/dL (7-23) Creatinine 0.6 mg/dL (0.7-1.2) L Estimat Glomerular Filtration Rate mL/min (>60) Glucose Level 118 mg/dL (74-106) H Calcium Level 9.5 mg/dL (8.6-10.2) Phosphorus Level 3.4 mg/dL (2.5-4.8) Magnesium Level 2.0 mg/dL (1.7-2.5) Total Bilirubin < 0.2 mg/dL (0.0-1.2) Aspartate Amino Transf (AST/SGOT) 28 U/L (5-40) Alanine Aminotransferase (ALT/SGPT) 36 U/L (3-41) Alkaline Phosphatase 114 U/L (40-129) Total Protein 6.3 g/dL (6.6-8.7) L Albumin 2.6 g/dL (3.5-5.2) L Globulin 3.7 g/dL Albumin/Globulin Ratio 0.7 (1.0-2.7) L Studies Pre-op Studies: EKG - nsr Risk Assessment & Plan Assessment: gi bleed, anemia Plan: colonoscopy Status Change Before Surgery: No Pre-Antibiotics Drug: RAYMON Marquis Apr 28, 2017 06:43
[2017-04-28] MEDS: Heparin 5000 units/ml inj SUBQ SCH (08:35)
[2017-04-28 08:43] LABS: ABG ALLEN TEST POSITIVE; ABG BASE EXCESS 2.7; ABG PCO2 37.5 mmHg (35.0-45.0)
--- NOTE | 2017-04-28 10:23 | Pulmonolgy Critical Care Note ---
Critical Care - Asmt/Plan Problems: (1) Acute respiratory failure (2) Acute encephalopathy (3) Anemia (4) Pneumonia (5) ATN (acute tubular necrosis) (6) Sepsis (7) Prostate cancer (8) Diabetes mellitus Respiratory: monitor respiratory rate, adjust FIO2, CXR Cardiac: continue to monitor HR/BP Renal: F/U I&O, keep IV fluid Infectious Disease: continue antibiotics Gastrointestinal: continue feedings/current rate Endocrine: monitor blood sugar, check TSH, continue sliding scale insulin Hematologic: monitor H/H, transfuse if hgb<8.5 Neurologic: PRN Ativan, PRN Morphine, keep patient comfortable Notes Reviewed: cardio, renal Discussed with: nurses, consultants, director case managementgarden center manager - Objective Last 24 Hour Vital Signs Date Time Temp Pulse Resp B/P Pulse Ox O2 Delivery O2 Flow Rate FiO2 04/28/17 10:00 65 18 169/73 100 Mechanical Ventilator 35 04/28/17 09:00 68 20 154/72 100 Mechanical Ventilator 35 04/28/17 08:37 76 20 35 04/28/17 08:00 67 04/28/17 08:00 98.4 68 20 155/71 100 Mechanical Ventilator 35 04/28/17 08:00 35 04/28/17 07:00 71 19 152/71 100 Mechanical Ventilator 35 04/28/17 06:32 77 22 35 04/28/17 06:00 78 20 156/73 100 Mechanical Ventilator 35 04/28/17 05:07 80 25 35 04/28/17 05:00 71 24 163/70 100 Mechanical Ventilator 35 04/28/17 04:37 174/75 04/28/17 04:00 67 04/28/17 04:00 98.0 71 24 179/80 100 Mechanical Ventilator 35 04/28/17 04:00 35 04/28/17 03:30 66 22 35 04/28/17 03:00 64 21 163/67 100 Mechanical Ventilator 35 04/28/17 02:00 61 19 151/68 100 Mechanical Ventilator 35 04/28/17 01:30 58 18 35 04/28/17 01:00 60 19 154/70 100 Mechanical Ventilator 35 04/28/17 00:00 35 04/28/17 00:00 64 04/28/17 00:00 97.8 71 22 134/85 100 Mechanical Ventilator 35 04/27/17 23:00 84 24 161/71 100 Mechanical Ventilator 35 04/27/17 22:53 73 22 35 04/27/17 22:00 79 24 154/73 100 Mechanical Ventilator 35 04/27/17 21:03 86 24 35 04/27/17 21:00 87 22 157/71 100 Mechanical Ventilator 35 04/27/17 20:00 99.6 96 28 146/64 100 Mechanical Ventilator 35 04/27/17 20:00 35 04/27/17 20:00 146/64 04/27/17 20:00 96 04/27/17 19:30 99 29 35 04/27/17 19:00 99 21 172/77 100 Mechanical Ventilator 35 04/27/17 18:00 94 20 167/82 100 Mechanical Ventilator 35 04/27/17 17:07 177/80 04/27/17 17:00 98.1 76 27 177/80 100 Mechanical Ventilator 35 04/27/17 16:38 66 21 35 04/27/17 16:00 35 04/27/17 16:00 63 19 165/57 100 Mechanical Ventilator 35 04/27/17 15:40 68 04/27/17 15:00 71 20 171/72 100 Mechanical Ventilator 35 04/27/17 14:37 76 19 35 04/27/17 14:00 76 19 174/73 100 Mechanical Ventilator 35 04/27/17 13:00 86 20 168/76 100 Mechanical Ventilator 35 04/27/17 12:46 87 29 35 04/27/17 12:00 98.4 84 19 157/69 100 Mechanical Ventilator 35 04/27/17 12:00 70 04/27/17 12:00 35 04/27/17 11:40 177/71 04/27/17 11:24 69 21 35 04/27/17 11:00 67 20 170/71 100 Mechanical Ventilator 35 Status: awake, sedated HEENT: atraumatic Neck: full ROM Lungs: chest wall tender Heart: HR/BP stable, HR/BP unstable, regular Abdomen: soft, active bowel sounds, feeding tube Extremities: edema Accucheck: 129 Critical Care - Subjective ROS Limited/Unobtainable: Yes ICU Day: 5 Intubation Day: 5 Condition: critical EKG Rhythm: Sinus Rhythm FI02: 35 Vent Support Breath Rate: 16 Vent Support Mode: AC Vent Tidal Volume: 500 Sputum Amount: Small PEEP: 5.0 PIP: 24 Tube Feeding Amount: 0 I&O: Intake and Output 04/27/17 04/28/17 19:00 07:00 Intake Total 3275 ml 2224.8 ml Output Total 2570 ml 3090 ml Balance 705 ml -865.2 ml Intake Free Water 100 ml IV Total 275 ml 444.8 ml Tube Feeding 840 ml 280 ml Other 2060 ml 1500 ml Output Urine Total 1620 ml 890 ml Stool Total 950 ml 2200 ml # Bowel Movements 1 CXR: no change ET-Tube: 8.0 ET Position: 26 Labs: Laboratory Tests Test 04/28/17 04:00 04/28/17 08:25 White Blood Count 11.8 K/UL (4.8-10.8) H Red Blood Count 2.81 M/UL (4.70-6.10) L Hemoglobin 9.0 G/DL (14.2-18.0) L Hematocrit 27.5 % (42.0-52.0) L Mean Corpuscular Volume 98 FL (80-99) Mean Corpuscular Hemoglobin 31.9 PG (27.0-31.0) H Mean Corpuscular Hemoglobin Concent 32.6 G/DL (32.0-36.0) Red Cell Distribution Width 14.9 % (11.6-14.8) H Platelet Count 469 K/UL (150-450) H Mean Platelet Volume 5.7 FL (6.5-10.1) L Neutrophils (%) (Auto) 70.3 % (45.0-75.0) Lymphocytes (%) (Auto) 16.3 % (20.0-45.0) L Monocytes (%) (Auto) 7.6 % (1.0-10.0) Eosinophils (%) (Auto) 5.1 % (0.0-3.0) H Basophils (%) (Auto) 0.7 % (0.0-2.0) Prothrombin Time 10.2 SEC (9.30-11.50) Prothromb Time International Ratio 1.0 (0.9-1.1) Activated Partial Thromboplast Time 26 SEC (23-33) Sodium Level 139 mEQ/L (135-145) Potassium Level 4.0 mEQ/L (3.4-4.9) Chloride Level 100 mEQ/L (98-107) Carbon Dioxide Level 27 mEQ/L (20-30) Anion Gap 12 (5-15) Blood Urea Nitrogen 9 mg/dL (7-23) Creatinine 0.6 mg/dL (0.7-1.2) L Estimat Glomerular Filtration Rate mL/min (>60) Glucose Level 118 mg/dL (74-106) H Calcium Level 9.5 mg/dL (8.6-10.2) Phosphorus Level 3.4 mg/dL (2.5-4.8) Magnesium Level 2.0 mg/dL (1.7-2.5) Total Bilirubin < 0.2 mg/dL (0.0-1.2) Aspartate Amino Transf (AST/SGOT) 28 U/L (5-40) Alanine Aminotransferase (ALT/SGPT) 36 U/L (3-41) Alkaline Phosphatase 114 U/L (40-129) Total Protein 6.3 g/dL (6.6-8.7) L Albumin 2.6 g/dL (3.5-5.2) L Globulin 3.7 g/dL Albumin/Globulin Ratio 0.7 (1.0-2.7) L Arterial Blood pH 7.467 (7.350-7.450) Arterial Blood Partial Pressure CO2 37.5 mmHg (35.0-45.0) Arterial Blood Partial Pressure O2 132.0 mmHg (75.0-100.0) H Arterial Blood HCO3 26.5 mmol/L (22.0-26.0) H Arterial Blood Oxygen Saturation 98.2 % (92.0-98.0) H Arterial Blood Base Excess 2.7 Angelo Test Positive MARGARITA ROBLES Apr 28, 2017 10:23
--- NOTE | 2017-04-28 11:07 | General Progress Note ---
Assessment/Plan Status: stable - from renal stand Assessment/Plan Status; Renal failure- High K , resolved Sever Anemia - Transfused- Primary Impression: Respiratory failure Pneumonia Sepsis Status post stroke Plan; Hydrate- Antibiotics Avoid nephrotoxics Transfused one unit 04/24 monitor renal parameters Subjective ROS Limited/Unobtainable: Yes Allergies: Coded Allergies: No Known Allergies (Unverified , 04/23/17) Objective Last 24 Hour Vital Signs Date Time Temp Pulse Resp B/P Pulse Ox O2 Delivery O2 Flow Rate FiO2 04/28/17 10:00 65 18 169/73 100 Mechanical Ventilator 35 04/28/17 09:00 68 20 154/72 100 Mechanical Ventilator 35 04/28/17 08:37 76 20 35 04/28/17 08:00 67 04/28/17 08:00 98.4 68 20 155/71 100 Mechanical Ventilator 35 04/28/17 08:00 35 04/28/17 07:00 71 19 152/71 100 Mechanical Ventilator 35 04/28/17 06:32 77 22 35 04/28/17 06:00 78 20 156/73 100 Mechanical Ventilator 35 04/28/17 05:07 80 25 35 04/28/17 05:00 71 24 163/70 100 Mechanical Ventilator 35 04/28/17 04:37 174/75 04/28/17 04:00 67 04/28/17 04:00 98.0 71 24 179/80 100 Mechanical Ventilator 35 04/28/17 04:00 35 04/28/17 03:30 66 22 35 04/28/17 03:00 64 21 163/67 100 Mechanical Ventilator 35 04/28/17 02:00 61 19 151/68 100 Mechanical Ventilator 35 04/28/17 01:30 58 18 35 04/28/17 01:00 60 19 154/70 100 Mechanical Ventilator 35 04/28/17 00:00 35 04/28/17 00:00 64 04/28/17 00:00 97.8 71 22 134/85 100 Mechanical Ventilator 35 04/27/17 23:00 84 24 161/71 100 Mechanical Ventilator 35 04/27/17 22:53 73 22 35 04/27/17 22:00 79 24 154/73 100 Mechanical Ventilator 35 04/27/17 21:03 86 24 35 04/27/17 21:00 87 22 157/71 100 Mechanical Ventilator 35 04/27/17 20:00 99.6 96 28 146/64 100 Mechanical Ventilator 35 04/27/17 20:00 35 04/27/17 20:00 146/64 04/27/17 20:00 96 04/27/17 19:30 99 29 35 04/27/17 19:00 99 21 172/77 100 Mechanical Ventilator 35 04/27/17 18:00 94 20 167/82 100 Mechanical Ventilator 35 04/27/17 17:07 177/80 04/27/17 17:00 98.1 76 27 177/80 100 Mechanical Ventilator 35 04/27/17 16:38 66 21 35 04/27/17 16:00 35 04/27/17 16:00 63 19 165/57 100 Mechanical Ventilator 35 04/27/17 15:40 68 04/27/17 15:00 71 20 171/72 100 Mechanical Ventilator 35 04/27/17 14:37 76 19 35 04/27/17 14:00 76 19 174/73 100 Mechanical Ventilator 35 04/27/17 13:00 86 20 168/76 100 Mechanical Ventilator 35 04/27/17 12:46 87 29 35 04/27/17 12:00 98.4 84 19 157/69 100 Mechanical Ventilator 35 04/27/17 12:00 70 04/27/17 12:00 35 04/27/17 11:40 177/71 04/27/17 11:24 69 21 35 Intake and Output 04/27/17 04/28/17 19:00 07:00 Intake Total 3275 ml 2224.8 ml Output Total 2570 ml 3090 ml Balance 705 ml -865.2 ml Intake Free Water 100 ml IV Total 275 ml 444.8 ml Tube Feeding 840 ml 280 ml Other 2060 ml 1500 ml Output Urine Total 1620 ml 890 ml Stool Total 950 ml 2200 ml # Bowel Movements 1 Laboratory Tests 04/28/17 04:00: White Blood Count 11.8H, Red Blood Count 2.81L, Hemoglobin 9.0L, Hematocrit 27.5L, Mean Corpuscular Volume 98, Mean Corpuscular Hemoglobin 31.9H, Mean Corpuscular Hemoglobin Concent 32.6, Red Cell Distribution Width 14.9H, Platelet Count 469H, Mean Platelet Volume 5.7L, Neutrophils (%) (Auto) 70.3, Lymphocytes (%) (Auto) 16.3L, Monocytes (%) (Auto) 7.6, Eosinophils (%) (Auto) 5.1H, Basophils (%) (Auto) 0.7, Prothrombin Time 10.2, Prothromb Time International Ratio 1.0, Activated Partial Thromboplast Time 26, Sodium Level 139, Potassium Level 4.0, Chloride Level 100, Carbon Dioxide Level 27, Anion Gap 12, Blood Urea Nitrogen 9, Creatinine 0.6L, Estimat Glomerular Filtration Rate , Glucose Level 118H, Calcium Level 9.5, Phosphorus Level 3.4, Magnesium Level 2.0, Total Bilirubin < 0.2, Aspartate Amino Transf (AST/SGOT) 28, Alanine Aminotransferase (ALT/SGPT) 36, Alkaline Phosphatase 114, Total Protein 6.3L, Albumin 2.6L, Globulin 3.7, Albumin/Globulin Ratio 0.7L 04/28/17 08:25: Arterial Blood pH 7.467H, Arterial Blood Partial Pressure CO2 37.5, Arterial Blood Partial Pressure O2 132.0H, Arterial Blood HCO3 26.5H, Arterial Blood Oxygen Saturation 98.2H, Arterial Blood Base Excess 2.7, Angelo Test Positive Height (Feet): 6 Height (Inches): 1.00 Weight (Pounds): 200 General Appearance: no apparent distress Objective no change SANDOVAL JULES Apr 28, 2017 11:07
--- NOTE | 2017-04-28 11:18 | Diagnostic Imaging Report ---
Indication: DYSPNEA Technique: One view of the chest Comparison: none Findings: Lung and pleural spaces are clear. Heart size is borderline enlarged. Endotracheal tube remains in stable satisfactory position. Slightly better inspiration currently, with better aeration at the right lung base. Impression: Resolved right basilar interstitial opacities, probably due to higher lung volumes on the current exam, but could indicate improving parenchymal disease, over one day
[2017-04-28] MEDS: Vancomycin 1.25 GM in D5W 275 ML IVPB SCH (11:38)
--- NOTE | 2017-04-28 12:11 | Infectious Diseases Prog Note ---
Assessment/Plan Assessment/Plan ASSESSMENT: 71 y/o male with: // Probable HCAP - SCx MRSA - CXR 04/27: Linear and hazy opacities persist in right lung base. // Negative C.difficile 04/25 // Severe sepsis - resolved lactic acidosis // Leukocytosis - mild // Low grade fever x1 - resolved // Acute VDRF - intubated 04/24 // FOBT(+) anemia - GI following, plan colonoscopy // Acute renal insufficiency - resolved // DM2 // CVA // Dysphagia SP PEG // SNF resident // MRSA, VRE colonized // NKDA // DNR PLAN: - continue IV vancomycin d# 5 / . 04/27 SP invanz, amikacin d# 4 - f/u cultures - colonoscopy per GI - f/u findings - monitor CBC, temperatures - monitor BMP - monitor CXR - vent support, wean as tolerated Subjective Allergies: Coded Allergies: No Known Allergies (Unverified , 04/23/17) Subjective on vent Objective Vital Signs Last 24 Hour Vital Signs Date Time Temp Pulse Resp B/P Pulse Ox O2 Delivery O2 Flow Rate FiO2 04/28/17 11:17 71 22 35 04/28/17 11:00 75 18 170/73 100 Mechanical Ventilator 35 04/28/17 10:00 65 18 169/73 100 Mechanical Ventilator 35 04/28/17 09:00 68 20 154/72 100 Mechanical Ventilator 35 04/28/17 08:37 76 20 35 04/28/17 08:00 67 04/28/17 08:00 98.4 68 20 155/71 100 Mechanical Ventilator 35 04/28/17 08:00 35 04/28/17 07:00 71 19 152/71 100 Mechanical Ventilator 35 04/28/17 06:32 77 22 35 04/28/17 06:00 78 20 156/73 100 Mechanical Ventilator 35 04/28/17 05:07 80 25 35 04/28/17 05:00 71 24 163/70 100 Mechanical Ventilator 35 04/28/17 04:37 174/75 04/28/17 04:00 67 04/28/17 04:00 98.0 71 24 179/80 100 Mechanical Ventilator 35 04/28/17 04:00 35 04/28/17 03:30 66 22 35 04/28/17 03:00 64 21 163/67 100 Mechanical Ventilator 35 04/28/17 02:00 61 19 151/68 100 Mechanical Ventilator 35 04/28/17 01:30 58 18 35 04/28/17 01:00 60 19 154/70 100 Mechanical Ventilator 35 04/28/17 00:00 35 04/28/17 00:00 64 04/28/17 00:00 97.8 71 22 134/85 100 Mechanical Ventilator 35 04/27/17 23:00 84 24 161/71 100 Mechanical Ventilator 35 04/27/17 22:53 73 22 35 04/27/17 22:00 79 24 154/73 100 Mechanical Ventilator 35 04/27/17 21:03 86 24 35 04/27/17 21:00 87 22 157/71 100 Mechanical Ventilator 35 04/27/17 20:00 99.6 96 28 146/64 100 Mechanical Ventilator 35 04/27/17 20:00 35 04/27/17 20:00 146/64 04/27/17 20:00 96 04/27/17 19:30 99 29 35 04/27/17 19:00 99 21 172/77 100 Mechanical Ventilator 35 04/27/17 18:00 94 20 167/82 100 Mechanical Ventilator 35 04/27/17 17:07 177/80 04/27/17 17:00 98.1 76 27 177/80 100 Mechanical Ventilator 35 04/27/17 16:38 66 21 35 04/27/17 16:00 35 04/27/17 16:00 63 19 165/57 100 Mechanical Ventilator 35 04/27/17 15:40 68 04/27/17 15:00 71 20 171/72 100 Mechanical Ventilator 35 04/27/17 14:37 76 19 35 04/27/17 14:00 76 19 174/73 100 Mechanical Ventilator 35 04/27/17 13:00 86 20 168/76 100 Mechanical Ventilator 35 04/27/17 12:46 87 29 35 Height (Feet): 6 Height (Inches): 1.00 Weight (Pounds): 200 HEENT: anicteric Respiratory/Chest: normal breath sounds Cardiovascular: normal rate Abdomen: no organomegaly Laboratory Tests Test 04/28/17 04:00 04/28/17 08:25 White Blood Count 11.8 K/UL (4.8-10.8) H Red Blood Count 2.81 M/UL (4.70-6.10) L Hemoglobin 9.0 G/DL (14.2-18.0) L Hematocrit 27.5 % (42.0-52.0) L Mean Corpuscular Volume 98 FL (80-99) Mean Corpuscular Hemoglobin 31.9 PG (27.0-31.0) H Mean Corpuscular Hemoglobin Concent 32.6 G/DL (32.0-36.0) Red Cell Distribution Width 14.9 % (11.6-14.8) H Platelet Count 469 K/UL (150-450) H Mean Platelet Volume 5.7 FL (6.5-10.1) L Neutrophils (%) (Auto) 70.3 % (45.0-75.0) Lymphocytes (%) (Auto) 16.3 % (20.0-45.0) L Monocytes (%) (Auto) 7.6 % (1.0-10.0) Eosinophils (%) (Auto) 5.1 % (0.0-3.0) H Basophils (%) (Auto) 0.7 % (0.0-2.0) Prothrombin Time 10.2 SEC (9.30-11.50) Prothromb Time International Ratio 1.0 (0.9-1.1) Activated Partial Thromboplast Time 26 SEC (23-33) Sodium Level 139 mEQ/L (135-145) Potassium Level 4.0 mEQ/L (3.4-4.9) Chloride Level 100 mEQ/L (98-107) Carbon Dioxide Level 27 mEQ/L (20-30) Anion Gap 12 (5-15) Blood Urea Nitrogen 9 mg/dL (7-23) Creatinine 0.6 mg/dL (0.7-1.2) L Estimat Glomerular Filtration Rate mL/min (>60) Glucose Level 118 mg/dL (74-106) H Calcium Level 9.5 mg/dL (8.6-10.2) Phosphorus Level 3.4 mg/dL (2.5-4.8) Magnesium Level 2.0 mg/dL (1.7-2.5) Total Bilirubin < 0.2 mg/dL (0.0-1.2) Aspartate Amino Transf (AST/SGOT) 28 U/L (5-40) Alanine Aminotransferase (ALT/SGPT) 36 U/L (3-41) Alkaline Phosphatase 114 U/L (40-129) Total Protein 6.3 g/dL (6.6-8.7) L Albumin 2.6 g/dL (3.5-5.2) L Globulin 3.7 g/dL Albumin/Globulin Ratio 0.7 (1.0-2.7) L Arterial Blood pH 7.467 (7.350-7.450) Arterial Blood Partial Pressure CO2 37.5 mmHg (35.0-45.0) Arterial Blood Partial Pressure O2 132.0 mmHg (75.0-100.0) H Arterial Blood HCO3 26.5 mmol/L (22.0-26.0) H Arterial Blood Oxygen Saturation 98.2 % (92.0-98.0) H Arterial Blood Base Excess 2.7 Angelo Test Positive Current Medications Medications (Trade) Dose Ordered Sig/Guzman Route PRN Reason Start Time Stop Time Status Last Admin Dose Admin Acetaminophen (Tylenol) 650 mg Q4H PRN ORAL fever 04/23/17 19:15 05/23/17 19:14 04/23/17 21:39 Albuterol/ Ipratropium 3 ml 3 ml Q4H PRN HHN Shortness of Breath 04/23/17 19:15 04/28/17 19:14 Dextrose (Dextrose 50%) STAT PRN IV Hypoglycemia 04/24/17 12:00 05/24/17 11:59 Heparin Sodium (Porcine) (Heparin 5000 units/ml) 5,000 units EVERY 12 HOURS SUBQ 04/23/17 21:00 05/23/17 20:59 04/27/17 20:53 Hydralazine HCl (Apresoline) 10 mg Q4H PRN IV SBP>160 04/26/17 13:45 05/26/17 13:44 04/28/17 04:37 Insulin Aspart (NovoLOG) Q6HR SUBQ 04/24/17 18:00 05/24/17 17:59 04/28/17 05:38 Lansoprazole (Prevacid) 30 mg DAILY GT 04/25/17 12:00 05/25/17 11:59 04/28/17 08:35 Lorazepam 2 mg 2 mg Q2H PRN IV For Anxiety 04/23/17 19:15 04/30/17 19:14 04/27/17 08:21 Morphine Sulfate (Morphine Sulfate) 4 mg Q4H PRN IVP Severe Pain (Pain Scale 7-10) 04/23/17 19:15 04/30/17 19:14 04/26/17 18:28 Norepinephrine Bitartrate/ Dextrose (Levophed/D5W) 254 ml @ 0 mls/hr Q24H IV 04/23/17 20:00 05/23/17 19:59 Ondansetron HCl (Zofran) 4 mg Q6H PRN IVP Nausea & Vomiting 04/23/17 19:15 05/23/17 19:14 Polyethylene Glycol (Miralax) 17 gm DAILYPRN PRN ORAL Constipation 04/23/17 19:15 05/23/17 19:14 Vancomycin HCl (Vanco rx to dose) 1 ea DAILY PRN MISC PRN RX PROTOCOL 04/23/17 20:00 05/23/17 19:59 Vancomycin HCl/ Dextrose (Vancomycin/D5W) 275 ml @ 183.3 mls/ hr Q12H IVPB 04/23/17 23:00 04/30/17 23:59 04/28/17 11:38 SHER PICKARD M.D. Apr 28, 2017 12:11
[2017-04-28] MEDS ORDERED: Propofol 10mg/ml 20ml IV ONE (13:00)
[2017-04-28] MEDS ORDERED: Lidocaine 1% MPF 10mg/ml 5ml ONE (13:00)
--- NOTE | 2017-04-28 13:03 | Pre-Procedure Note/Attestation ---
Pre-Procedure Note/Attestation Complete Prior to Procedure Planned Procedure: not applicable Procedure Narrative: colonoscopy Indications for Procedure Pre-Operative Diagnosis: gib Attestation I attest that I discussed the nature of the procedure; its benefits; risks and complications; and alternatives (and the risks and benefits of such alternatives ), prior to the procedure, with the patient (or the patient's legal manufacturers service representative). I attest that, if there was a reasonable possibility of needing a blood transfusion, the patient (or the patient's legal manufacturers service representative) was given the [facility] standardized written summary, pursuant to the Fabian Reji Blood Safety Act ([place] Health and Safety Code # 1645, as amended). I attest that I re-evaluated the patient just prior to the surgery and that there has been no change in the patient's H&P, except as documented below: JOLIE LUEVANO Apr 28, 2017 13:03
[2017-04-28] MEDS ORDERED: NS 550ML IV ONE (13:20)
--- NOTE | 2017-04-28 15:48 | Endoscopy Procedure Note ---
Endoscopy Procedure Note Indication for Procedure: gib Procedures Performed: colonoscopy Operative Findings/Diagnosis: hemorrhoids Specimen: none Pt Tolerated Procedure Well: Yes Estimated Blood Loss: none Anesthesiologist: aura ferrara Anesthesia: MAC Implant(s) used?: No 50 yrs or older w/o bx or poly: Not Applicable 10yrs. F/U not recommended: Not Applicable JOLIE LUEVANO Apr 28, 2017 15:48
[2017-04-28] MEDS: Morphine Sulfate 4mg/ml Inj IVP PRN (16:21)
--- NOTE | 2017-04-28 16:44 | Immediate Post-Op Evaluation ---
Immediate Post-Op Evalulation Immediate Post-Op Evalulation Procedure: colonoscopy Date of Evaluation: Apr 28, 2017 Time of Evaluation: 14:03 IV Fluids: 0.9ns Blood Products: none Estimated Blood Loss: negligible Blood Pressure Systolic: 121 Blood Pressure Diastolic: 65 Pulse Rate: 76 Respiratory Rate: 18 O2 Sat by Pulse Oximetry: 100 Temperature (Fahrenheit): 98.5 Pain Score (1-10): 0 Nausea: No Vomiting: No Complications none Patient Status: awake, reacts, ventilated Hydration Status: adequate Drug: RAYMON Marquis Apr 28, 2017 16:44
--- NOTE | 2017-04-28 16:45 | Procedure Note ---
DATE OF PROCEDURE: 04/28/2017 PROCEDURE: Colonoscopy. SURGEON: Rashaad Thornton M.D. ANESTHESIA: Per Dr. Contreras. INSTRUMENT: Olympus adult flexible colonoscope. INDICATION: Gastrointestinal bleeding. The procedure, risks, benefits, and possible consequences, including hemorrhage, aspiration, perforation and infection, and alternative treatments, were explained to the patient/legal guardian by Dr. Rashaad Thornton and the patient/legal guardian understood and accepted these risks. DESCRIPTION OF PROCEDURE: After informed consent was obtained and the patient was adequately sedated, first rectal exam was performed, which was normal. Then, the scope was advanced from the rectum into the cecum, documented by appendiceal orifice, ileocecal valve, and right upper quadrant palpation. Quality of prep was good. There was no evidence of any active bleeding during this colonoscopic examination. There was some wall edema, especially in the right colon. There was no obvious bleeding. No mass, no polyp was seen. On retroflexion of the rectum, there was evidence of internal hemorrhoids. SUMMARY OF FINDINGS: 1. Mild wall edema, especially in the right colon. 2. Internal hemorrhoids. RECOMMENDATIONS: Resume tube feeding. Monitor labs. Hold GI procedure at this time. If the patient shows signs and symptoms of obvious GI bleeding, we will consider endoscopy. Rashaad Thornton M.D. DR: JHONNY JOB#: [id number] CC:
--- NOTE | 2017-04-28 16:47 | 48 Hour Post Anesthesia Eval ---
Post Anesthesia Evaluation Procedure: colonoscopy Date of Evaluation: Apr 28, 2017 Time of Evaluation: 16:45 Blood Pressure Systolic: 149 0: 74 Pulse Rate: 71 Respiratory Rate: 17 Temperature (Fahrenheit): 98.5 O2 Sat by Pulse Oximetry: 100 Airway: other - intubated on ventilator Nausea: No Vomiting: No Pain Intensity: 0 Hydration Status: adequate Cardiopulmonary Status: stable Mental Status/LOC: patient returned to baseline Post-Anesthesia Complications: none Follow-up care needed: N/A RAYMON BETH Apr 28, 2017 16:47
[2017-04-28] MEDS ORDERED: Tubing IV Secondary IV ONE ×2 (18:09)
[2017-04-28] MEDS ORDERED: D5W 275ml ONE (18:09)
--- NOTE | 2017-04-29 13:08 | Discharge Summary ---
Discharge Summary Hospital Course Date of Admission Apr 23, 2017 at 18:57 Date of Discharge Apr 28, 2017 at 18:10 Admitting Diagnosis respiratory distress HPI Halie Crandall is a 71 year old male who was admitted on Apr 23, 2017 at 18:57 for Respiratory Distress Hospital Course [id number] Discharge Discharge Disposition Patient was discharged to Acute Care Facility(02) Discharge Diagnoses: Hanane Grossman NP Apr 29, 2017 13:08
--- NOTE | 2017-04-29 23:01 | Discharge Summary 2 SIG ---
DATE OF ADMISSION: 04/23/2017 DATE OF DISCHARGE: 04/28/2017 CONSULTANTS: 1. Gee Argueta M.D. 2. Roman Monroe M.D. 3. Rashaad Thornton M.D. BRIEF HOSPITAL COURSE: The patient is a 71-year-old male, who was brought in by EMS from residential facility secondary to respiratory distress, hypoxia, and decreased mentation. On arrival to ED, the patient was in respiratory failure and was immediately orally intubated. His blood pressure dropped and was given aggressive IV hydration and antibiotics were started. Chest x-ray showed right-sided infiltrates. The patient had green thick secretions suctioned from the ET tube. Hemoglobin was 7.8 and hematocrit was 25. He was given one unit of packed RBC blood transfusion for anemia. Due to acute respiratory failure, the patient was admitted to ICU. His laboratories showed renal failure with elevated potassium level at 5.4. Lactic acid was 2.6. He had renal ultrasound showing bilateral renal atrophy He was started on IV vancomycin, amikacin, and ertapenem. The sputum culture showed growth of MRSA. Blood culture did not isolate any growth. Invanz and amikacin were eventually discontinued. C. difficile was negative. He had an episode of anemia and had positive fecal occult blood. He underwent colonoscopy on 04/08/2017 with findings of mild wall edema and specially on the right colon and internal hemorrhoids. Tube feeding was resumed. There was no sign and symptom of obvious lower GI bleed. He had an echocardiogram that showed ejection fraction estimated 45 to 50% and mild pulmonary hypertension. The patient was eventually transferred to [facility] to continue care. FINAL DIAGNOSES: 1. Acute respiratory failure, requiring oral intubation. 2. Probable healthcare-associated pneumonia. 3. Sepsis. 4. Acute tubular necrosis. 5. Acute anemia, requiring transfusion. 6. Prostate cancer. 7. Diabetes mellitus. 8. Acute encephalopathy. 9. Internal hemorrhoids. 10. Dysphagia, status post percutaneous endoscopic gastrostomy tube. 11. Old cerebrovascular accident. 12. Gastrointestinal bleed s/p colonoscopy. Mirali Zarrabi, M.D. I have been assigned to dictate discharge summary on this account and I was not involved in the patient's management. Hanane Grossman N.P. DR: Tatyana JOB#: [id number] CC: SHAHIDA
== END 2017-04-28 18:10 | disposition short-term general hospital (02) | DRG 870 ==
LOC: EDBD 17:49 → EMR 18:40 → ICU 18:57 → EDBEDREQ 19:34
PROC: 0BH17EZ Insertion of Endotracheal Airway into Trachea, Via Natural or Artificial Opening (ICD-10-PCS; principal; 2017-04-23)
PROC: 5A1955Z Respiratory Ventilation, Greater than 96 Consecutive Hours (ICD-10-PCS; principal; 2017-04-23)
PROC: 0DJD8ZZ Inspection of Lower Intestinal Tract, Via Natural or Artificial Opening Endoscopic (ICD-10-PCS; 2017-04-28)
DX: A41.9 Sepsis, unspecified organism (principal); N17.0 Acute kidney failure with tubular necrosis; J96.02 Acute respiratory failure with hypercapnia; J96.01 Acute respiratory failure with hypoxia; J18.9 Pneumonia, unspecified organism; G93.40 Encephalopathy, unspecified; K92.2 Gastrointestinal hemorrhage, unspecified; C61 Malignant neoplasm of prostate; E11.9 Type 2 diabetes mellitus without complications; E66.9 Obesity, unspecified; E78.5 Hyperlipidemia, unspecified; E88.09 Other disorders of plasma-protein metabolism, not elsewhere classified; D50.9 Iron deficiency anemia, unspecified; R13.10 Dysphagia, unspecified; R19.7 Diarrhea, unspecified; R65.20 Severe sepsis without septic shock; K64.8 Other hemorrhoids; Z93.1 Gastrostomy status; Z68.27 Body mass index [BMI] 27.0-27.9, adult; Z66 Do not resuscitate; Y95 Nosocomial condition; Z79.82 Long term (current) use of aspirin; Z22.322 Carrier or suspected carrier of Methicillin resistant Staphylococcus aureus; Z86.73 Personal history of transient ischemic attack (TIA), and cerebral infarction without residual deficits; Z78.1 Physical restraint status
CPT/HCPCS: 36415; 36600; 71010; 76775; 80053; 80150; 80202; 81003; 82248; 82270; 82378; 82550; 82607; 82728; 82746; 82803; 82962; 82977; 83540; 83550; 83605; 83615; 83735; 83880; 84100; 84133; 84300; 84484; 84550; 85007; 85025; 85044; 85060; 85610; 85651; 85730; 86850; 86900; 86901; 86920; 87040; 87070; 87081; 87086; 87181; 87205; 87324; 89050; 93005; 93306; 94003; 94150; 94664; J1815; J2250